=== PATIENT | female | born 1935 | race Caucasian/White ===

== ENCOUNTER 2018-02-11 12:08 | Inpatient (IN) ==
[2018-02-11] MEDS ORDERED: Aspirin 81 MG TAB.CHEW PO STA (13:19)
[2018-02-11 13:51] LABS: Basophils # 0.1 K/mcL (0.0-0.2); Basophils % 0.8 %; Eosinophils # 0.1 K/mcL (0.0-0.6); Eosinophils % 0.6 %; Hematocrit 36.2 % (35.3-44.9); Hemoglobin 11.1 g/dL (11.5-15.4); Immature Granulocytes % 0.2 % (0-4); Lymphocytes # 2.2 K/mcL (0.6-4.6); Lymphocytes % 24.4 %; Mean Corpuscular HGB Conc 30.7 g/dL (31.6-35.5); Mean Corpuscular Hemoglobin 27.2 pg (28.0-33.3); Mean Corpuscular Volume 88.7 fL (83.0-100.0); Mean Platelet Volume 12.2 fL (9.4-12.4); Monocytes # 0.7 K/mcL (0.0-1.3); Monocytes % 7.7 %; Neutrophils # 5.8 K/mcL (1.6-8.9); Platelet Count 221 K/mcL (140-400); Red Blood Count 4.08 M/mcL (3.82-4.97); Red Cell Distribution Width 17.5 % (11.5-14.5); Segmented Neutrophils % 66.3 %
[2018-02-11 14:07] LABS: Troponin I < 0.03 ng/mL (< 0.04)
[2018-02-11 14:08] LABS: BUN/Creatinine Ratio 12 (6-26); Blood Urea Nitrogen 11 mg/dL (8-23); Calcium 9.2 mg/dL (8.6-10.3); Carbon Dioxide 28 mEq/L (23-29); Chloride 102 mEq/L (98-107); Glucose 107 mg/dL (70-105); Magnesium 1.7 mg/dL (1.6-2.6); Osmolality,Calculated 286 (280-300); Potassium 3.7 mEq/L (3.5-5.1); Sodium 138 mEq/L (136-145); eGFR For Non-African Americans 58 (> 60)
[2018-02-11 14:21] LABS: Thyroid Stimulating Hormone 2.003 mcIU/mL (0.340-5.600)
[2018-02-11] MEDS ORDERED: *HR* Heparin 5,000 UNIT/ML VIAL IVP ONE (14:43)
[2018-02-11] MEDS ORDERED: *HR* Heparin 5,000 UNIT/ML VIAL IVP PRN ×2 (14:43)
[2018-02-11] MEDS ORDERED: Naloxone 0.4 MG/ML INJ IVP PRN (15:31)
[2018-02-11 15:46] LABS: INR 1.1; Prothrombin Time 11.9 Seconds (9.4-12.1)
[2018-02-11 15:47] LABS: Heparin anti-factor XA UFH 0.04 IU/mL (0.30-0.70)
[2018-02-11] MEDS ORDERED: traZODone 50 MG TABLET PO PRN (15:53)
--- NOTE | 2018-02-11 16:14 | Electrocardiograph Report ---
[employer] Test Date: 2018-02-11 Pat Name: No Carrasquillo Department: 104 Room: 3B22 Gender: F Notereader: : 1935 Requested By: Floresita See Order Number: [id number] Reading MD: Darion Torres Measurements Intervals [place] Rate: 135 P: AL: 0 QRS: 49 QRSD: 81 T: 40 QT: 317 QTc: 396 Interpretive Statements ATRIAL FIBRILLATION WITH RAPID VENTRICULAR RESPONSE LOW QRS VOLTAGE IN PRECORDIAL LEADS ABNORMAL RHYTHM ECG Electronically Signed On 02-11-2018 16:13:02 EDT by Darion Torres
[2018-02-11] MEDS ORDERED: Furosemide 20 MG/2 ML VIAL IVP ONE (16:40)
[2018-02-11] MEDS ORDERED: Furosemide 20 MG/2 ML VIAL IVP SCH (17:00)
[2018-02-11] MEDS: Heparin 25,000 UNIT/500 ML D5W 25,000 UNIT/500 ML BAG IVC SCH (17:51)
[2018-02-11 18:09] LABS: Hematocrit 36.3 % (35.3-44.9); Hemoglobin 11.1 g/dL (11.5-15.4)
[2018-02-11] MEDS: Acetaminophen 325 MG TABLET PO PRN (18:36)
--- NOTE | 2018-02-11 19:19 | Emergency Department Note ---
Disposition Clinical Impression: New onset atrial fibrillation, Peripheral edema Dyspnea Qualifiers: Dyspnea type: unspecified Qualified Code(s): R06.00 - Dyspnea, unspecified Disposition: Admitted As Inpatient Condition: Good Time of Disposition: 14:46 General Adult HPI - General Chief complaint: ED Shortness of Breath/Dyspnea Stated complaint: New onset Afib/CHF Time Seen by Provider: 02/11/18 12:22 Source: patient Mode of arrival: ambulatory Limitations: no limitations Nursing Notes Reviewed: Yes Vital Signs Reviewed: Yes - History of Present Illness HPI Narrative: Patient is a 82-year-old female that presents emergency department with increased shortness of breath and sense of palpitations and irregular heartbeat. Patient states that this is been ongoing for the past few weeks. Patient states that she has been seen by her primary care provider and was found to have pleural effusions. Patient states that she does not have a history of age fibrillation or any cardiac history. Patient states that she has had stress tests in the past and this was "normal" per patient and family member. Patient states that she has had some epigastric chest discomfort but does not radiate anywhere. Patient reports that she has had increased shortness of breath and when she lays flat her symptoms are worse. She also reports that she has had increased swelling in bilateral lower extremities. Pain Scale: 0 - Related Data Allergies Allergy/AdvReac Type Severity Reaction Status Date / Time ciprofloxacin [From Cipro] Allergy See Verified 02/11/18 12:22 Comments codeine Allergy Nausea Verified 02/11/18 12:22 latex Allergy Blister Verified 02/11/18 12:22 pantoprazole [From Protonix] Allergy Itching Verified 02/11/18 12:22 Sulfa (Sulfonamide Allergy Rash Verified 02/11/18 12:22 Antibiotics) Zolpidem [From Ambien] Allergy Hallucinati Verified 02/11/18 12:22 ng All systems ED: reviewed and negative except as stated. Cardiovascular: Reports: chest pain Respiratory: Reports: dyspnea Past Medical History - Past Medical History Medical history: Reports: GERD, hypertension, seizures Surgical history: Reports: cholecystectomy, hysterectomy Psychiatric history: Reports: no psych history - Social History Smoking Status: Never smoker Alcohol use: Reports: occasionally Drug use: Reports: none Physical Exam - General Limitations: no limitations General appearance: alert, in no apparent distress - Head Head exam: atraumatic, normocephalic - Eye Eye exam: Present: normal appearance, EOMI - Neck Neck exam: Present: normal inspection, full ROM, trachea midline - Respiratory Respiratory exam: Present: normal lung sounds bilaterally. Absent: respiratory distress, wheezes - Cardiovascular Cardiovascular exam: Present: tachycardia, irregular rhythm, normal heart sounds, +S1, +S2 - Abdominal Exam Abdominal exam: Present: soft, Non-Tender, normal bowel sounds - Extremities Exam Extremities exam: Present: other (2+ edema bilateral lower extremity is) - Neurological Exam Neurological exam: Present: alert, oriented X3 - Psychiatric Psychiatric exam: Present: normal affect, normal mood - Skin Skin exam: Present: warm, dry, intact Course Vital Signs Temperature 98.0 F 02/11/18 12:22 Pulse Rate 135 02/11/18 12:22 Respiratory Rate 20 02/11/18 12:22 Blood Pressure 115/71 02/11/18 12:22 O2 Sat by Pulse Oximetry 98 02/11/18 12:22 Temperature 98.0 F 02/11/18 12:22 Pulse Rate 125 02/11/18 14:28 Respiratory Rate 18 02/11/18 14:28 Blood Pressure 150/111 02/11/18 14:28 O2 Sat by Pulse Oximetry 97 02/11/18 14:30 Oxygen Delivery Oxygen Delivery Room Air Medical Decision Making - MDM Narrative Medical decision making narrative: Due to the patient stating to the emergency department with new onset atrial fibrillation and shortness of breath we will obtain a cardiac workup including CBC, BMP, troponin chest x-ray EKG. We will also try the patient with IV Lasix due to having increased fluid retention. We will also give the patient diltiazem for rate control of her new onset atrial fibrillation. Patient's EKG showed atrial fibrillation with rapid ventricular response. The chest x-ray showed a small left pleural effusion otherwise was unremarkable. Patient's troponin was negative. Patient does have a mild anemia of 11.1. Due to the patient having new onset atrial fibrillation she will need rate control, anticoagulation and to be admitted to the hospital for further evaluation and management workup of her atrial fibrillation. Patient was discussed with the admitting hospitalist Dr. caldwell and she is accepted the patient to their service. Patient be admitted to the hospital this time for further evaluation and management. The admitting hospitalist and asked that a consult to cardiology be placed in the computer. This is been done. We will also start the patient on standard dose heparin for anticoagulation with her new onset atrial fibrillation. - Medical Records Medical records reviewed: Yes I reviewed the patient's medical records. - Lab Data Lab results reviewed: Yes I reviewed the patient's lab results. Result diagrams: 02/11/18 12:22 02/11/18 12:22 Lab Results 02/11/18 02/11/18 Range/Units 12:22 12:22 WBC 8.8 (4.3-11.1) K/mcL RBC 4.08 (3.82-4.97) M/mcL Hgb 11.1 L (11.5-15.4) g/dL Hct 36.2 (35.3-44.9) % MCV 88.7 (83.0-100.0) fL MCH 27.2 L (28.0-33.3) pg MCHC 30.7 L (31.6-35.5) g/dL RDW 17.5 H (11.5-14.5) % Plt Count 221 (140-400) K/mcL MPV 12.2 (9.4-12.4) fL Immature Gran % 0.2 (0-4) % Seg Neutrophils % 66.3 % Lymphocytes % 24.4 % Monocytes % 7.7 % Eosinophils % 0.6 % Basophils % 0.8 % Neutrophils # 5.8 (1.6-8.9) K/mcL Lymphocytes # 2.2 (0.6-4.6) K/mcL Monocytes # 0.7 (0.0-1.3) K/mcL Eosinophils # 0.1 (0.0-0.6) K/mcL Basophils # 0.1 (0.0-0.2) K/mcL Sodium 138 (136-145) mEq/L Potassium 3.7 (3.5-5.1) mEq/L Chloride 102 (98-107) mEq/L Carbon Dioxide 28 (23-29) mEq/L BUN 11 (8-23) mg/dL Creatinine 0.93 (0.60-1.20) mg/dL Est GFR ( Amer) > 60 (> 60) Est GFR (Non-Af Amer) 58 L (> 60) BUN/Creatinine Ratio 12 (6-26) Glucose 107 H (70-105) mg/dL Calculated Osmolality 286 (280-300) Calcium 9.2 (8.6-10.3) mg/dL Magnesium 1.7 (1.6-2.6) mg/dL Troponin I < 0.03 (< 0.04) ng/mL TSH 2.003 (0.340-5.600) mcIU/mL - Radiology Data Radiology results reviewed: Yes I reviewed the patient's radiology results. Chest X-Ray 02/11/18 12:22 IMPRESSION: Small left pleural effusion and minimal atelectasis. Otherwise no acute cardiopulmonary process is seen. D/ / Sandeep Marie MD / Sandeep Marie MD Interpreting Provider: Sandeep Marie MD - EKG Data EKG #1 EKG attestation: Yes I reviewed and interpreted this EKG. EKG results narrative: EKG shows atrial fibrillation with rapid ventricular response at a rate of 135 bpm, QRS duration 81, QTC of 396. No evidence of STEMI and EKG. Attestation Statement - Attestation Attestation: I examined this patient and my medical decision-making was reviewed with the [facility] Physician, Dr. Brownlee. I agree with the documented findings, disposition and treatment plan as described except to the extent set forth below. Patient is an 82-year-old white female who presents seem or permit today with complaints of palpitations and chest discomfort area and she is been experiencing these intermittent palpitations the past few weeks but states that the symptoms worsened over the last few days associated with shortness of breath and left-sided chest pressure. Patient denies any prior cardiac history or evaluation. Patient denies any fevers or chills, no cough or hemoptysis, no diaphoresis. Patient denies any abdominal pain or flank pain no nausea vomiting no other associated symptoms. I agree with patient's physical exam findings as documented. Vital signs are stable with the exception of tachycardia. Patient EKG shows ECG atrial fibrillation with RVR. No acute ischemia is appreciated with this. Patient received aspirin and Cardizem which achieved good rate control and patient remains hemodynamically stable. Chest x-ray shows a small trace pleural effusion otherwise unremarkable. Patient's labs including troponin are within normal limits. Patient will be admitted to the hospitalist service for further evaluation and management. Case was discussed with Dr. terence gamez who accepted the patient for admission.
--- NOTE | 2018-02-11 19:34 | Internal Med History&Physical ---
<AgustinHi - Last Filed: 02/11/18 17:15> Date of Encounter: 02/11/18 Time of Encounter: 14:55 Internal Medicine - H&P: HPI Chief complaint: SOB/Dyspnea/Heart palpitations Admitted From: Emergency Dept Plans for Post Hospital Care: Home History of present illness: Ms. Carrasquillo is a 82 year old female w/PMH of GERD, seizures, hx of HTN (currently does not take BP medication), hx of having 10" of colon removed (d/t adhesions, abscess, and diverticulosis), hx of bladder & bowel stimulator implant, and depression presents from the ED w/CC of SOB, dyspnea, and heart palpitations for the past 3 weeks. Pt. states that her PCP told her previously that she had pleural effusions. Pt. states she had right-sided flank pain and was dxd w/kidney infection recently and completed 10 days of abx. F/u CT of the abdomen/pelvis on 02/08/18 showed no evidence of renal or ureter calculus, bilateral perinephric fat sranding that could suggest chronic renal disease w/appropriate clinical hx, and moderate left pleural effusion. Reports orthopnea, continued pain in RUQ, and bilateral pedal edema. Denies cardiac hx, CHF dx, hx of Afib, or home O2 use. Pt. denies recent illness, fever, chills, nausea, vomiting, headache, changes in vision, unusual bleeding, chest pain, diarrhea, constipation, dizziness, lightheadedness, numbness, tingling, pre- syncope, or syncope. Past Med Surg Social Fam HX - Past Medical History Source: patient, old records reviewed, obtained from family Medical history: GERD, hypertension, seizures Additional medical history: tremors. last seizure- 3 years Psychiatric history: depression - Past Surgical History Surgical History: cholecystectomy, hysterectomy (Total) Additional surgical history: bladder sx x9 , colon 12in removed - Social History Smoking Status: Never smoker Alcohol use: occasionally Drug use: none Current living situation: Home, With Family Activity Level: Independent ambulation Recent Out of Country Travel Within the Last 8 Weeks: No Exposure or Possible Exposure to Illness During Travel: No - Family History Brother Race: Family Member Ethnicity: Non- Living Status: Age at : 87 Cause of : CHF Hx Family Cardiac Disorders: Yes (CHF) Father Race: Family Member Ethnicity: Non- Living Status: Age at : 63 Cause of : Prostate cancer Hx Family Respiratory Disorders: Yes (Asthma) Hx Family Cancer: Yes (Prostate) Mother Race: Family Member Ethnicity: Non- Living Status: Age at : 100 Cause of : Colon cancer Hx Family Cardiac Disorders: Yes (Pacemaker, HTN) Hx Family Cancer: Yes (Colon) Sister Race: Family Member Ethnicity: Non- Living Status: Age at : 69 Cause of : Breast cancer Hx Family Cancer: Yes (Breast, Multiple myeloma) Internal Medicine - H&P: Meds Carbidopa/Levodopa [Carbidopa-Levodopa 25-100 Tab] 1 tab PO TID 02/11/18 [History] Citalopram Hydrobromide [Citalopram HBr] 20 mg PO DAILY 02/11/18 [History] Estrogens, Conjugated [Premarin] 1.25 mg PO DAILY 02/11/18 [History] RX: Omeprazole [PriLOSEC] 40 mg PO DAILY 02/11/18 [History] RX: traZODone [TraZODone] 50 mg PO HS PRN 02/11/18 [History] Allergy/AdvReac Type Severity Reaction Status Date / Time ciprofloxacin [From Cipro] Allergy See Verified 02/11/18 12:22 Comments codeine Allergy Nausea Verified 02/11/18 12:22 latex Allergy Blister Verified 02/11/18 12:22 pantoprazole [From Protonix] Allergy Itching Verified 02/11/18 12:22 Sulfa (Sulfonamide Allergy Rash Verified 02/11/18 12:22 Antibiotics) Zolpidem [From Ambien] Allergy Hallucinati Verified 02/11/18 12:22 ng tramadol AdvReac Dizziness Verified 02/11/18 20:37 All Systems PM: A 10-system review of systems was performed and is negative for pertinent findings except as documented above in the HPI. - Constitutional Constitutional: no chills, no fever(s), no night sweats - EENT Eyes: no change in vision, no discharge, no pain, no photophobia Ears: no ear discharge, no ear pain, no tinnitus Nose, mouth and throat: no dysphagia, no nasal discharge, no neck pain, no sore throat - Breasts Breasts: as per HPI - Cardiovascular Cardiovascular ROS IM: as per HPI, dyspnea, dyspnea on exertion, edema (Bilateral pedal edema), irregular heart rhythm, orthopnea, no chest pain, no diaphoresis, no lightheadedness, no palpitations, no syncope - Respiratory Respiratory: as per HPI, dyspnea, dyspnea on exertion, no cough, no wheezing, no excessive phlegm production - Gastrointestinal Gastrointestinal: as per HPI, abdominal pain (RUQ), no diarrhea, no hematemesis, no hematochezia, no melena, no nausea, no vomiting - Genitourinary Genitourinary: as per HPI, flank pain (Right), no change in urinary stream, no dysuria, no hematuria Menstruation: as per HPI, post hysterectomy (Total) - Musculoskeletal Musculoskeletal ROS IM: no numbness, no tingling - Integumentary Integumentary IM: no rash, no unusual bruising - Neurological Neurological ROS: as per HPI, no confusion, no convulsions, no focal weakness, no numbness, no tingling, no tremor(s) - Psychiatric Psychiatric: as per HPI, depression - Endocrine Endocrine IM: as per HPI - Hematologic/Lymphatic Hematologic/Lymphatic: no easy bruising - Allergic/Immunologic Allergic/Immunologic: as per HPI - Constitutional Vitals: Temp Pulse Resp BP Pulse Ox 98.0 F 115 16 150/116 99 02/11/18 12:22 02/11/18 15:10 02/11/18 15:10 02/11/18 15:10 02/11/18 15:10 General appearance: Present: cooperative, mild distress (SOB/dyspnea), A&O X 3, pleasant, answers questions appropriately Exam: Patient examined at bedside in ED w/complaint of ongoing SOB and dyspnea. Pt. states that she is also having heart palpitations. Denies nausea, CP or any other sx at this time. VS: 96.2F temp, HR 114, RR 18, BP 138/90, SpO2 of 99% on RA. - Head Head exam: Present: atraumatic, normocephalic - Eye Eye exam: Present: PERRL, conjuntiva pink, sclera anicteric Pupils: Present: PERRL - ENT ENT exam: Present: normal exam - Neck Neck exam general surgery: Present: normal inspection, supple, trachea midline. Absent: lymphadenopathy - Respiratory Respiratory exam: Present: CTAB. Absent: accessory muscle use, rales, rhonchi, wheezes - Cardiovascular Cardiovascular exam: Present: irregular rhythm. Absent: diastolic murmur, gallop, rubs, systolic murmur - GI/Abdominal GI/Abdominal exam: Present: normal bowel sounds, soft, no peritoneal signs. Absent: distended, tenderness - Rectal Rectal exam: Present: deferred - Additional comments: exam deferred. - Extremities Exam Extremities exam: Present: pedal edema (1+ pitting bilaterally), warm, radial pulses palpable and symmetrical. Absent: calf tenderness, cyanotic - Back Exam Back exam: Present: normal inspection - Neurological Exam Neurological exam: Present: alert, CN II-XII intact, oriented X3, no focal deficits. Absent: pronater drift, facial droop, speech deficit - Psychiatric Psychiatric exam: Present: normal affect, normal mood - Skin Skin exam: Present: dry, intact Internal Med - H&P Results - Labs CBC & Chem 7: 02/11/18 12:22 02/11/18 12:22 Labs: Short CBC 02/11/18 Range/Units 12:22 WBC 8.8 (4.3-11.1) K/mcL Hgb 11.1 L (11.5-15.4) g/dL Hct 36.2 (35.3-44.9) % Plt Count 221 (140-400) K/mcL Neutrophils # 5.8 (1.6-8.9) K/mcL BMP 02/11/18 12:22 Sodium 138 Potassium 3.7 Chloride 102 Carbon Dioxide 28 BUN 11 Creatinine 0.93 Glucose 107 H Calcium 9.2 Cardiac Enzymes 02/11/18 Range/Units 12:22 Troponin I < 0.03 (< 0.04) ng/mL - Impressions ITS Impressions Chest X-Ray 02/11/18 12:22 IMPRESSION: Small left pleural effusion and minimal atelectasis. Otherwise no acute cardiopulmonary process is seen. D/ / Sandepe Marie MD / Sandeep Marie MD Interpreting Provider: Sandeep Marie MD - Diagnostic Studies CT scan - abdomen Additional comments: ORDER PHYSICIAN: Hays Ricobruno BIRAD: DATE OF SERVICE: 02/08/18 FOLLOW UP: ACCESSION NUMBERS(S): [id number] PROCEDURE(S): CT abd pelvis wo no iv no oral REASON FOR EXAM: R10.31 cc: Saúl Ballard; Nael EXAMINATION: CT OF THE ABDOMEN AND PELVIS WITHOUT CONTRAST 02/08/2018 12:46 pm TECHNIQUE: CT of the abdomen and pelvis was performed without the administration of intravenous contrast. Multiplanar reformatted images are provided for review. Dose modulation, iterative reconstruction, and/or weight based adjustment of the mA/kV was utilized to reduce the radiation dose to as low as reasonably achievable. COMPARISON: None. HISTORY: ORDERING SYSTEM PROVIDED HISTORY: R10.31 FINDINGS: No evidence of renal or ureter calculus. There is no hydronephrosis. There is mild bilateral perinephric fat stranding. No evidence of bowel obstruction, free air, or evidence of free fluid. Postsurgical changes are seen in the pelvis related to prior bowel resection. The appendix is visualized and unremarkable. There is no intrahepatic or extrahepatic bile duct dilatation. Evidence of cholecystectomy. No evidence of acute pancreatitis. Spleen is nonenlarged. There is moderate-sized pleural effusion visualized left lung base. CT/CT abd pelvis wo no iv no oral IMPRESSION: 1. No evidence of renal or ureter calculus. 2. Bilateral perinephric fat stranding could suggest chronic medical renal disease with appropriate clinical history. 3. Moderate size left pleural effusion. D/ / Govind Kelly / Govind Kelly Interpreting Provider: Govind Kelly Chest x-ray Additional comments: Impressions Chest X-Ray 02/11/18 12:22 IMPRESSION: Small left pleural effusion and minimal atelectasis. Otherwise no acute cardiopulmonary process is seen. D/ / Sandeep Marie MD / Sandeep Marie MD Interpreting Provider: Sandeep Marie MD - Assessment and plan (1) New onset atrial fibrillation Current Visit: Yes Status: Acute Assessment and plan: Acute and new onset of atrial fibrillation. Pt. denies cardiac hx, hx of Afib, or CHF. CXR today shows small left pleural effusion and minimal atelectasis. Otherwise no acute cardiopulmonary process is seen. Echocardiogram ordered. Continuous cardiac telemetry. Supplemental O2 w/titration and SpO2 monitoring for SOB/orthopnea. Pt. placed on Cardizem gtt in ED as well as heparin gtt. Cardiology consult placed in ED and I appreciate the consult and recommendations as always. Pt. discussed w/Dr. Gayle who agrees w/plan of care. Pt. is high risk for further morbidity and complications based on new onset of Afib, suspected CHF (awaiting results of Echocardiogram), SOB/dyspnea, Cardizem and heparin gtts requiring close monitoring and titration, hx, and risk factors. Inpatient. (2) Peripheral edema Current Visit: Yes Status: Acute Assessment and plan: Acute and new bilateral pedal edema of LEs. 1+ pitting. Pt. denies use of lasix or hx/dx of CHF. 20 mg IVP lasix ONCE. Will add BID dosing once Echocardiogram is completed if results warrant. 1/5L fluid restriction. BNP ordered. Monitor I&O and daily weight. (3) Dyspnea Current Visit: Yes Status: Acute Assessment and plan: Pt. reports SOB/dypsnea for the past three weeks that has been worsening, orthopnea, increased weight gain, and bilateral pedal edema. Denies home O2 use. Supplemental O2 w/titration and SpO2 monitoring. 20 mg IVP ONCE of lasix and monitor I&O. 1.5L daily fluid restriction. Qualifiers: Dyspnea type: orthopnea Qualified Code(s): R06.01 - Orthopnea (4) GERD (gastroesophageal reflux disease) Current Visit: Yes Status: Chronic Assessment and plan: Hx of chronic GERD. Continue pts. Prilosec. IVP Zofran PRN for N/V. Qualifiers: Esophagitis presence: esophagitis presence not specified Qualified Code(s): K21.9 - Gastro-esophageal reflux disease without esophagitis (5) History of seizures Current Visit: Yes Status: Chronic Assessment and plan: Hx of seizures. Last reported seizure was two years ago. Continue pts. Carbidopa levodopa. (6) CKD (chronic kidney disease) stage 3, GFR 30-59 ml/min Current Visit: Yes Status: Chronic Assessment and plan: Hx of CKD. Currently stage 3 w/GFR of 58 and creatinine of 0.93. Will use IV fluids judiciously if warranted d/t CKD hx and current suspected CHF component. Avoid nephrotoxins. Monitor I&O, daily weight, and f/u labs. 1.5L daily fluid restriction d/t current pedal edema and orthopnea. (7) DVT prophylaxis Current Visit: Yes Status: Acute Assessment and plan: Pt. placed on heparin drip d/t new onset of Atrial fibrillation. Monitor pt. for signs of bleeding. - Time Spent With Patient Total time spent is greater than 50% in coordination of care (as documented) at patient's floor/unit and/or counseling patient: Greater than 35 minutes <Kelsi Gayle - Last Filed: 02/14/18 07:56> Internal Medicine - H&P: HPI History of present illness: Ms. Carrasquillo is a 82 year old female All Systems PM: A 10-system review of systems was performed and is negative for pertinent findings except as documented above in the HPI. - Constitutional Vitals: Temp Pulse Resp BP Pulse Ox 97.8 F 96 16 128/82 97 02/14/18 07:06 02/14/18 07:06 02/14/18 07:06 02/14/18 07:06 02/14/18 07:06 Internal Med - H&P Results - Labs CBC & Chem 7: 02/14/18 02:42 02/14/18 02:42 Labs: Short CBC 02/14/18 Range/Units 02:42 WBC 6.4 (4.3-11.1) K/mcL Hgb 9.4 L (11.5-15.4) g/dL Hct 31.1 L (35.3-44.9) % Plt Count 170 (140-400) K/mcL Neutrophils # 3.8 (1.6-8.9) K/mcL BMP 02/14/18 02:42 Sodium 138 Potassium 3.5 Chloride 104 Carbon Dioxide 28 BUN 9 Creatinine 0.87 Glucose 92 Calcium 8.5 L Liver Function 02/14/18 Range/Units 02:42 Total Bilirubin 0.5 (0.3-1.0) mg/dL AST 11 L (13-39) Units/L ALT < 3 L (7-52) Units/L Alkaline Phosphatase 46 (34-104) Units/L Albumin 2.9 L (3.5-5.7) g/dL Urine 02/13/18 Range/Units 10:14 Urine Color Yellow (Yellow) Urine Clarity Cloudy A (Clear) Urine pH 6.5 (5.0-8.0) pH Units Ur Specific [place] 1.006 L (1.010-1.025) Urine Protein Negative (Neg-Trace) mg/dL Urine Glucose (UA) Normal (Normal) mg/dL - Impressions ITS Impressions Chest X-Ray 02/11/18 12:22 IMPRESSION: Small left pleural effusion and minimal atelectasis. Otherwise no acute cardiopulmonary process is seen. D/ / Sandeep Marie MD / Sandeep Marie MD Interpreting Provider: Sandeep Marie MD Echocardiogram 02/12/18 15:45 Impressions: Technically adequate exam. LVEF 60-65%. Indeterminate diastolic function. Mild concentric left ventricular hypertrophy. Normal right ventricular structure and function. Moderately to severe biatrial enlargement. Mild-moderate mitral regurgitation. Moderate-severe tricuspid regurgitation. - Assessment and plan (1) New onset atrial fibrillation Current Visit: Yes Status: Acute (2) Peripheral edema Current Visit: Yes Status: Acute (3) Dyspnea Current Visit: Yes Status: Acute Qualifiers: Dyspnea type: orthopnea Qualified Code(s): R06.01 - Orthopnea (4) GERD (gastroesophageal reflux disease) Current Visit: Yes Status: Chronic Qualifiers: Esophagitis presence: esophagitis presence not specified Qualified Code(s): K21.9 - Gastro-esophageal reflux disease without esophagitis (5) DVT prophylaxis Current Visit: Yes Status: Acute (6) History of seizures Current Visit: Yes Status: Chronic (7) CKD (chronic kidney disease) stage 3, GFR 30-59 ml/min Current Visit: Yes Status: Chronic (8) Alcohol abuse Current Visit: Yes Status: Acute (9) CHF (congestive heart failure) Current Visit: Yes Status: Acute Qualifiers: Heart failure type: unspecified Heart failure chronicity: acute Qualified Code(s): I50.9 - Heart failure, unspecified - Time Spent With Patient Total time spent is greater than 50% in coordination of care (as documented) at patient's floor/unit and/or counseling patient: - Attending Attestation I personally and independently interviewed and examined the patient , and I reviewed the patient's medical record . I am in agreement with proposed assessment and proposed treatment plan. I discussed my findings and recommendation with the patient and answer his questions. The patient's medical records were edited to accurately reflect this encounter.
[2018-02-11] MEDS ORDERED: *HR* HYDROcodone/Acet 7.5/325 mg TABLET PO ONE (20:56)
[2018-02-11] MEDS ORDERED: *HR* Promethazine 25 MG/ML VIAL IVP ONE (21:04)
[2018-02-11] MEDS: Carbidopa/Levodopa 25/100 TABLET PO SCH (21:27)
[2018-02-12 00:35] LABS: Basophils # 0.1 K/mcL (0.0-0.2); Eosinophils # 0.1 K/mcL (0.0-0.6); Eosinophils % 1.4 %; Hemoglobin 10.5 g/dL (11.5-15.4); Immature Granulocytes % 0.1 % (0-4); Lymphocytes # 2.6 K/mcL (0.6-4.6); Lymphocytes % 36.5 %; Mean Corpuscular HGB Conc 30.9 g/dL (31.6-35.5); Mean Corpuscular Hemoglobin 26.9 pg (28.0-33.3); Mean Platelet Volume 12.3 fL (9.4-12.4); Monocytes # 0.8 K/mcL (0.0-1.3); Monocytes % 10.9 %; Neutrophils # 3.5 K/mcL (1.6-8.9); Platelet Count 197 K/mcL (140-400); Red Blood Count 3.91 M/mcL (3.82-4.97); Red Cell Distribution Width 17.5 % (11.5-14.5); Segmented Neutrophils % 50.1 %
[2018-02-12 00:50] LABS: Albumin 3.3 g/dL (3.5-5.7); Albumin/Globulin Ratio 1.2 (1.1-2.2); Bilirubin,Total 0.4 mg/dL (0.3-1.0); Chol/HDL Ratio 2.3 (0-4.9); Globulin 2.8 g/dL (2.4-3.5); Potassium 3.7 mEq/L (3.5-5.1); Total Protein 6.1 g/dL (6.4-8.9)
[2018-02-12 07:14] LABS: Estimated Average Glucose 131 mg/dl; Hemoglobin A1C 6.2 %
[2018-02-12] MEDS: Carbidopa/Levodopa 25/100 TABLET PO SCH ×3 (07:55→21:00)
--- NOTE | 2018-02-12 09:31 | Cardiology Consult Note ---
Addendum entered and electronically signed by Guillermo Olea MD 02/12/18 14:38: I examined this patient and my medical decision-making was reviewed with the LENS COATING TECHNICIAN. I agree with the documented findings, disposition and treatment plan as described except to the extent set forth below. A/P: New onset atrial fibrillation Alcohol use, per pt and family, 2/2 severe chronic back pain that has been suboptimally treated. States toradol helped in the past - will give IV 20mg x 1 dose. Acute CHF, NOS. Dyspnea upon sitting up in bed, bibasilar crackles on exam. Lasix 20mg IV daily - continue to monitor bmp closely, may need to accept mild renal impairment to improve symptoms. Imdur 30mg daily to reduce preload and awaiting TTE results. Thank you for the consult, Guillremo Olea MD [facility] Original Note: Date of Encounter: 02/12/18 Time of Encounter: 09:30 Assessment and Plan (1) New onset atrial fibrillation Current Visit: Yes Status: Acute Per Cardiology: Currently A. fib in the 70s to 80s. Currently on IV Cardizem drip at 2.5 mg per hour -- will attempt to wean IV Cardizem drip and start Cardizem 30 mg by mouth every 6 hours area and current systolic blood pressure in the low 100s. Echo pending. TSH, magnesium, troponin stable. Regarding long-term anticoagulation, currently on IV heparin drip. We will need to evaluate long-term anticoagulation, concerns for unsteady gait with history of falls, alcohol abuse. (2) Dyspnea Current Visit: Yes Status: Acute Per Cardiology: Chest x-ray shows small left pleural effusion. BNP noted to be 345. On IV Lasix 20 mg twice a day. Net - ~500ml. Echo pending. Qualifiers: Dyspnea type: orthopnea Qualified Code(s): R06.01 - Orthopnea Discussion w patient/family: The assessment and plan as outlined above was discussed with the patient and/or family members who expressed understanding and agreement. All questions were answered. Thank you for involving us in the care of your patient. Please call with any questions. History of Present Illness Consult date: 02/12/18 Requesting physician: Hi Velez Consult reason: Afib Chief complaint: SOB History of present illness: Previous records reviewed, "Ms. Carrasquillo is a 82 year old female w/PMH of GERD, seizures, hx of HTN (currently does not take BP medication), hx of having 10" of colon removed (d/t adhesions, abscess, and diverticulosis), hx of bladder & bowel stimulator implan t, and depression presents from the ED w/CC of SOB, dyspnea, and heart palpitations for the past 3 weeks. Pt. states that her PCP told her previously that she had pleural effusions. Pt. states she had right-sided flank pain and was dxd w/kidney infection recently and completed 10 days of abx". ____ __ Cardiology consult for new onset A. fib with RVR. Patient seen with family at bedside and confirm above findings. She reports progressive shortness of breath at rest and dyspnea on exertion over the past 3- 4 weeks with increased bilateral lower swelling and edema. The report weight gain of about 15 pounds during the same time period. She reports chronic history of dizziness with position changes, however worsening over the past few weeks. She reports history of anemia, however denies any current active bleeding or blood loss. Reports history of nonessential tremors. Reports unsteady gait and history of falls. Now lives at home with daughter reports last fall about one year ago. She does report she drinks about one alcoholic beverage every evening, however family member in the hallway pointed out she drinks about 5-6 drinks per night. She denies any past history of atrial fi brillation. Denies any awareness to any CAD history. Denies any smoking in the past. Past Med Surg Social Fam HX - Past Medical History Attestation: Yes The following information was validated with the patient. Source: patient, old records reviewed, obtained from family Medical history: GERD, hypertension, seizures Additional medical history: tremors. last seizure- 3 years Psychiatric history: depression - Past Surgical History Surgical History: cholecystectomy, hysterectomy (Total) Additional surgical history: bladder sx x9 , colon 12in removed - Social History Smoking Status: Never smoker Smokeless Tobacco Status: No Alcohol use: occasionally Drug use: none - Family History Brother Race: Family Member Ethnicity: Non- Living Status: Age at : 87 Cause of : CHF Hx Family Cardiac Disorders: Yes (CHF) Sister Race: Family Member Ethnicity: Non- Living Status: Age at : 69 Cause of : Breast cancer Hx Family Cancer: Yes (Breast, Multiple myeloma) Mother Race: Family Member Ethnicity: Non- Living Status: Age at : 100 Cause of : Colon cancer Hx Family Cardiac Disorders: Yes (Pacemaker, HTN) Hx Family Cancer: Yes (Colon) Father Race: Family Member Ethnicity: Non- Living Status: Age at : 63 Cause of : Prostate cancer Hx Family Respiratory Disorders: Yes (Asthma) Hx Family Cancer: Yes (Prostate) Medications and Allergies Carbidopa/Levodopa [Carbidopa-Levodopa 25-100 Tab] 1 tab PO TID 02/11/18 [History] Citalopram Hydrobromide [Citalopram HBr] 20 mg PO DAILY 02/11/18 [History] Estrogens, Conjugated [Premarin] 1.25 mg PO DAILY 02/11/18 [History] Omeprazole [PriLOSEC] 40 mg PO DAILY 02/11/18 [History] traZODone [TraZODone] 50 mg PO HS PRN 02/11/18 [History] Allergy/AdvReac Type Severity Reaction Status Date / Time ciprofloxacin [From Cipro] Allergy See Verified 02/11/18 12:22 Comments codeine Allergy Nausea Verified 02/11/18 12:22 latex Allergy Blister Verified 02/11/18 12:22 pantoprazole [From Protonix] Allergy Itching Verified 02/11/18 12:22 Sulfa (Sulfonamide Allergy Rash Verified 02/11/18 12:22 Antibiotics) Zolpidem [From Ambien] Allergy Hallucinati Verified 02/11/18 12:22 ng tramadol AdvReac Dizziness Verified 02/11/18 20:37 All Systems Review: The remainder of the systems were reviewed and are negative - Constitutional Constitutional: fatigue, weight gain - Cardiovascular Cardiovascular: as per HPI, chest pain at rest, chest pain with exertion, dyspnea at rest, dyspnea on exertion, irregular heart rhythm, leg edema, lightheadedness, palpitations Physical Examination Vital Signs, Last 4 Hours Temp Pulse Resp BP Pulse Ox 02/12/18 08:10 97.8 F 70 16 107/65 95 02/12/18 07:50 97.8 F 76 16 98/57 97 General: Conversant, No Apparent Distress HEENT: Atraumatic, Normocephaly, Mucus Membranes Moist Neck: No JVD, Normal carotid pulses Cardiac: Normal S1 and S2, No Murmur, Other (Irregularly irregular) Lungs: Normal Breath Sounds, No Wheeze, Rales, Rhonchi Neuro: Alert and responsive, No focal deficits noted Abdomen: Soft, Non-Tender Skin: No rashes noted on visualized skin Musculoskeletal: No Chest Wall Tenderness Extremities: No Clubbing, No Cyanosis, Normal Pulses, Other (+2 bilateral lower extremity edema) Results 02/12/18 00:13 02/12/18 00:13 Lab Results Laboratory Tests 02/11/18 02/11/18 02/11/18 12:22 14:44 16:09 Hgb Hct INR 1.1 Creatinine Est GFR (Non-Af Amer) Hemoglobin A1c Magnesium 1.7 AST ALT Troponin I < 0.03 B-Natriuretic Peptide 345 H LDL Cholesterol, Calc TSH 2.003 02/12/18 02/12/18 02/12/18 00:13 00:13 00:13 Hgb 10.5 L Hct 34.0 L INR Creatinine 1.18 Est GFR (Non-Af Amer) 44 L Hemoglobin A1c 6.2 H Magnesium AST 13 ALT 3 L Troponin I B-Natriuretic Peptide LDL Cholesterol, Calc 73 TSH ITS Impressions Chest X-Ray 02/11/18 12:22 IMPRESSION: Small left pleural effusion and minimal atelectasis. Otherwise no acute cardiopulmonary process is seen. D/ / Sandeep Marie MD / Sandeep Marie MD Interpreting Provider: Sandeep Marie MD Active Medications Acetaminophen (Tylenol) 650 mg PO Q6HR PRN PRN Reason: Mild Pain/Fever Stop: 08/13/18 15:32 Last Admin: 02/11/18 18:36 Dose: 650 mg Carbidopa/Levodopa (Sinemet) 1 each PO TID [facility] Stop: 08/13/18 21:01 Last Admin: 02/12/18 07:55 Dose: 1 each Citalopram Hydrobromide (Celexa) 20 mg PO DAILY [facility] Stop: 08/14/18 09:01 Last Admin: 02/12/18 07:55 Dose: 20 mg Estrogens Conjugated (Premarin) 1.25 mg PO DAILY [facility] Stop: 08/14/18 09:01 Last Admin: 02/12/18 07:55 Dose: 1.25 mg Furosemide (Lasix) 20 mg IVP BIDDIURETIC [facility] Stop: 08/13/18 17:01 Heparin Sodium (Porcine) (Heparin) 4,800 unit 70 unit/kg (4800 unit) IVP Q6HR PRN PRN Reason: SEE COMMENTS Stop: 08/13/18 14:44 Heparin Sodium (Porcine) (Heparin) 2,400 unit 35 unit/kg (2400 unit) IVP Q6H PRN PRN Reason: SEE COMMENTS Stop: 08/13/18 14:44 Diltiazem HCl 50 mg/ Sodium (Chloride) 50 mls @ 5 mls/hr IVC .Q10H [facility]; Protocol Stop: 08/13/18 13:46 Last Infusion: 02/12/18 08:55 Dose: 2.5 mg/hr, 2.5 mls/hr Heparin Sodium/Dextrose (Heparin 25,000 Unit/500 Ml D5w) 25,000 unit in 500 mls @ 19.178 mls/hr IVC .Q24H [facility]; Protocol Stop: 08/13/18 14:46 Last Titration: 02/12/18 02:17 Dose: 13.94 unit/kg/hr, 19.1 mls/hr Naloxone HCl (Narcan) 0.4 mg IVP Q2MIN PRN PRN Reason: SEE COMMENTS Stop: 08/13/18 15:32 Omeprazole (Prilosec) 40 mg PO DAILY@0730 [facility] Stop: 08/14/18 07:31 Last Admin: 02/12/18 06:23 Dose: 40 mg Trazodone HCl (Trazodone) 50 mg PO HS PRN PRN Reason: Insomnia Stop: 08/13/18 15:54 - Imaging and Cardiology Echo: pending - EKG Interpretation EKG results cardiology: personally reviewed (Atrial fibrillation in the 130s) Consult Discharge Plan - Plan Referrals: Saúl Ballard MD [Primary Care Provider] -
[2018-02-12] MEDS: Acetaminophen 325 MG TABLET PO PRN ×2 (11:45→23:06)
[2018-02-12] MEDS ORDERED: Ketorolac 15 MG/ML VIAL IVP ONE (14:36)
[2018-02-12] MEDS ORDERED: *HR* LORazepam 2 MG/ML VIAL IVP PRN ×3 (15:28)
[2018-02-12] MEDS ORDERED: *HR* Promethazine 25 MG/ML VIAL IVP PRN (15:28)
--- NOTE | 2018-02-12 15:36 | Internal Med Progress Note ---
Hospitalist Progress Note - Encounter Date of Encounter: 02/12/18 Time of Encounter: 10:00 - Subjective Interval History: Patient was seen and examined at bedside. Currently denies any palpitations chest pain or shortness of breath. She does have some chronic back pain. - Exam Vitals: Temp Pulse Resp BP Pulse Ox 98.1 F 88 14 124/70 97 02/12/18 12:16 02/12/18 13:00 02/12/18 13:00 02/12/18 13:00 02/12/18 13:00 Exam: General: Conversant, No Apparent Distress HEENT: Atraumatic, Normocephaly, Mucus Membranes Moist Neck: No JVD, Normal carotid pulses Cardiac: Normal S1 and S2, No Murmur, Other (Irregularly irregular) Lungs: Normal Breath Sounds, No Wheeze, Rales, Rhonchi Neuro: Alert and responsive, No focal deficits noted Abdomen: Soft, Non-Tender Skin: No rashes noted on visualized skin Musculoskeletal: No Chest Wall Tenderness Extremities: No Clubbing, No Cyanosis, Normal Pulses, Other (+2 bilateral lower extremity edema) - Assessment and Plan (1) New onset atrial fibrillation Current Visit: Yes Status: Acute Assessment and Plan: Acute and new onset of atrial fibrillation. Pt. denies cardiac hx, hx of Afib, or CHF. CXR today shows small left pleural effusion and minimal atelectasis. Otherwise no acute cardiopulmonary process is seen. Echocardiogram ordered. Continuous cardiac telemetry. Supplemental O2 w/titration and SpO2 monitoring for SOB/orthopnea. Pt. placed on Cardizem gtt in ED as well as heparin gtt. Cardiology consult placed in ED and I appreciate the consult and recommendations as always. Pt. discussed w/Dr. Gayle who agrees w/plan of care. Pt. is high risk for further morbidity and complications based on new onset of Afib, suspected CHF (awaiting results of Echocardiogram), SOB/dyspnea, Cardizem and heparin gtts requiring close monitoring and titration, hx, and risk factors. Inpatient. 02/12 Currently atrial fibrillation heart rate 70 to 80s continues on IV Cardizem at 2-1/2/h Seen by cardiology this a.m. attempting to wean off cardiac exam initiated on oral Cardizem every 6 hours TSH magnesium and troponin unremarkable Currently she is on a heparin drip-she will require long-term anticoagulation however she is high risk due to unsteady gait history of falls and alcohol abuse cardiology will review Echo is pending (2) Peripheral edema Current Visit: Yes Status: Acute Assessment and Plan: Acute and new bilateral pedal edema of LEs. 1+ pitting. Pt. denies use of lasix or hx/dx of CHF. 20 mg IVP lasix ONCE. Will add BID dosing once Echocardiogram i s completed if results warrant. 1/5L fluid restriction. BNP ordered. Monitor I&O and daily weight. 02/12 We will continue with Lasix IV daily and closely monitor and creatinine (3) Dyspnea Current Visit: Yes Status: Acute Assessment and Plan: Pt. reports SOB/dypsnea for the past three weeks that has been worsening, orthopnea, increased weight gain, and bilateral pedal edema. Denies home O2 use. Supplemental O2 w/titration and SpO2 monitoring. 20 mg IVP ONCE of lasix and monitor I&O. 1.5L daily fluid restriction. 02/12 Secondary to CHF exacerbation continue with IV Lasix monitor intake and output fluid restriction at 1.5 L daily (4) GERD (gastroesophageal reflux disease) Current Visit: Yes Status: Chronic Assessment and Plan: Hx of chronic GERD. Continue pts. Prilosec. IVP Zofran PRN for N/V. 02/12 History of GERD we will continue Prilosec (5) History of seizures Current Visit: Yes Status: Chronic Assessment and Plan: Hx of seizures. Last reported seizure was two years ago. Continue pts. Carbidopa levodopa. 02/12 Patient has a history of seizures, no seizure activity noted at this time we will continue seizure precautions (6) CKD (chronic kidney disease) stage 3, GFR 30-59 ml/min Current Visit: Yes Status: Chronic Assessment and Plan: Hx of CKD. Currently stage 3 w/GFR of 58 and creatinine of 0.93. Will use IV fluids judiciously if warranted d/t CKD hx and current suspected CHF component. Avoid nephrotoxins. Monitor I&O, daily weight, and f/u labs. 1.5L daily fluid restriction d/t current pedal edema and orthopnea. 02/12 Patient has had history of cKD stage III-currently stable we will closely monitor creatinine during diuresis Monitor intake and output and daily weights No NSAIDs Continue with fluid restriction for now (7) Alcohol abuse Current Visit: Yes Status: Acute Assessment and Plan: 1 patient reports that she drinks approximately 1-2 drinks of Meyers Buna every day to help with her back pain. Reported per cardiology ONLINE CONTENT COORDINATOR that family states it is more 5-6 drinks daily. We will monitor for withdrawal symptoms CIWA precautions (8) DVT prophylaxis Current Visit: Yes Status: Acute Assessment and Plan: Pt. placed on heparin drip d/t new onset of Atrial fibrillation. Monitor pt. for signs of bleeding. 02/12 Currently on heparin drip - Time Spent with Patient Total time spent is greater than 50% in coordination of care (as documented) at patient's floor/unit and/or counseling patient: Internal Medicine: Result - Labs CBC & Chem 7: 02/12/18 00:13 02/12/18 00:13 Labs: Short CBC 02/11/18 02/12/18 Range/Units 17:47 00:13 WBC 7.0 (4.3-11.1) K/mcL Hgb 11.1 L 10.5 L (11.5-15.4) g/dL Hct 36.3 34.0 L (35.3-44.9) % Plt Count 197 (140-400) K/mcL Neutrophils # 3.5 (1.6-8.9) K/mcL BMP 02/12/18 00:13 Sodium 141 Potassium 3.7 Chloride 104 Carbon Dioxide 27 BUN 10 Creatinine 1.18 Glucose 111 H Calcium 9.0 Liver Function 02/12/18 Range/Units 00:13 Total Bilirubin 0.4 (0.3-1.0) mg/dL AST 13 (13-39) Units/L ALT 3 L (7-52) Units/L Alkaline Phosphatase 57 (34-104) Units/L Albumin 3.3 L (3.5-5.7) g/dL - ABG Interpretation ABG results: PT/INR, D-dimer PT 11.9 Seconds (9.4-12.1) 02/11/18 14:44 Consult Discharge Plan - Plan Referrals: Saúl Ballard MD [Primary Care Provider] - (3) Dyspnea Qualifiers: Dyspnea type: orthopnea Qualified Code(s): R06.01 - Orthopnea (4) GERD (gastroesophageal reflux disease) Qualifiers: Esophagitis presence: esophagitis presence not specified Qualified Code(s): K21.9 - Gastro-esophageal reflux disease without esophagitis
[2018-02-12] MEDS: Famotidine 20 MG TABLET PO SCH (21:00)
[2018-02-12] MEDS: Heparin 25,000 UNIT/500 ML D5W 25,000 UNIT/500 ML BAG IVC SCH (23:41)
[2018-02-13 04:00] LABS: Basophils # 0.1 K/mcL (0.0-0.2); Basophils % 0.9 %; Eosinophils # 0.1 K/mcL (0.0-0.6); Eosinophils % 2.1 %; Hematocrit 29.5 % (35.3-44.9); Hemoglobin 9.3 g/dL (11.5-15.4); Immature Granulocytes % 0.1 % (0-4); Lymphocytes # 2.1 K/mcL (0.6-4.6); Lymphocytes % 30.4 %; Mean Corpuscular HGB Conc 31.5 g/dL (31.6-35.5); Mean Corpuscular Hemoglobin 27.7 pg (28.0-33.3); Mean Corpuscular Volume 87.8 fL (83.0-100.0); Mean Platelet Volume 12.7 fL (9.4-12.4); Monocytes # 0.7 K/mcL (0.0-1.3); Monocytes % 9.6 %; Neutrophils # 3.9 K/mcL (1.6-8.9); Platelet Count 172 K/mcL (140-400); Red Blood Count 3.36 M/mcL (3.82-4.97); Red Cell Distribution Width 17.9 % (11.5-14.5); Segmented Neutrophils % 56.9 %
[2018-02-13 04:23] LABS: Alanine Aminotransferase < 3 Units/L (7-52); Albumin/Globulin Ratio 1.3 (1.1-2.2); Alkaline Phosphatase 43 Units/L (34-104); Aspartate Amino Transferase 12 Units/L (13-39); BUN/Creatinine Ratio 13 (6-26); Bilirubin,Total 0.4 mg/dL (0.3-1.0); Blood Urea Nitrogen 12 mg/dL (8-23); Calcium 8.5 mg/dL (8.6-10.3); Carbon Dioxide 26 mEq/L (23-29); Chloride 102 mEq/L (98-107); Globulin 2.4 g/dL (2.4-3.5); Glucose 99 mg/dL (70-105); Osmolality,Calculated 286 (280-300); Potassium 3.4 mEq/L (3.5-5.1); Sodium 138 mEq/L (136-145); Total Protein 5.4 g/dL (6.4-8.9); eGFR For Non-African Americans 57 (> 60)
--- NOTE | 2018-02-13 08:12 | Cardiology Progress Note ---
Date of Encounter: 02/13/18 Time of Encounter: 08:10 Assessment and Plan (1) New onset atrial fibrillation Current Visit: Yes Status: Acute Per Cardiology: Currently A. fib in the 50's to 60's. Systolic blood pressure stable. We will convert to Cardizem CD 120 mg by mouth daily. Echo results noted: Impressions: Technically adequate exam. LVEF 60-65%. Indeterminate diastolic function. Mild concentric left ventricular hypertrophy. Normal right ventricular structure and function. Moderately to severe biatrial enlargement. Mild-moderate mitral regurgitation. Moderate-severe tricuspid regurgitation. Regarding long-term anticoagulation, currently on IV heparin drip. Patient interested in DOAC. Discussed and reviewed with Dr. Olea, agreeable to attempt long-term anticoagulation for now. Patient instructed to utilize a cane at home. We will place PT consult. Patient will need better pain control for back pain and encouraged to decreased alcohol intake (drinking for pain relief). Patient instructed on education regarding bleeding and blood loss. We will need to monitor closely. At this point benefit outweighs the risk and will proceed with anticoagulation. García check pending for Eliqusi 5mg PO BID. (2) Dyspnea Current Visit: Yes Status: Acute Per Cardiology: Chest x-ray shows small left pleural effusion. BNP noted to be 345. On IV La six 20 mg twice a day. Net -525ml. Does not utilize oxygen at home, currently on 2 L O2. Qualifiers: Dyspnea type: orthopnea Qualified Code(s): R06.01 - Orthopnea Discussion w patient/family: The assessment and plan as outlined above was discussed with the patient and/or family members who expressed understanding and agreement. All questions were answered. Thank you for involving us in the care of your patient. Please call with any questions. Subjective Principal diagnosis: afib Interval history: Patient reports shortness of breath has improved. Reports improvement in edema as well. She denies any chest pain or palpitations. Reports back pain better controlled. Objective Vital Signs, Last 4 Hours Temp Pulse Resp BP Pulse Ox 02/13/18 07:05 98.1 F 88 16 108/69 97 General: Conversant, No Apparent Distress HEENT: Atraumatic, Normocephaly, Mucus Membranes Moist Neck: No JVD, Normal carotid pulses Cardiac: Normal S1 and S2, No Murmur, Other (Irregularly irregular) Lungs: Normal Breath Sounds, Other (Slightly diminished bilateral bases) Neuro: Alert and responsive, No focal deficits noted Abdomen: Soft, Non-Tender Skin: No rashes noted on visualized skin Musculoskeletal: No Chest Wall Tenderness Extremities: No Clubbing, No Cyanosis, Normal Pulses, Other (+1 bilateral lower extremity nonpitting edema) Results 02/13/18 02:44 02/13/18 02:44 Lab Results Laboratory Tests 02/13/18 02/13/18 02:44 02:44 Hgb 9.3 L Hct 29.5 L Potassium 3.4 L Creatinine 0.94 Est GFR (Non-Af Amer) 57 L Impressions Echocardiogram 02/12/18 15:45 Impressions: Technically adequate exam. LVEF 60-65%. Indeterminate diastolic function. Mild concentric left ventricular hypertrophy. Normal right ventricular structure and function. Moderately to severe biatrial enlargement. Mild-moderate mitral regurgitation. Moderate-severe tricuspid regurgitation. Intake & Output 02/10/18 02/11/18 02/12/18 02/13/18 23:59 23:59 23:59 23:59 Intake Total 50 / 50 600.0 / 600.0 Output Total 600 / 600 375 / 375 200 / 200 Balance -550 / -550 225.0 / 225.0 -200 / -200 Weight 68.492 kg 69.4 kg 68.5 kg Active Medications Acetaminophen (Tylenol) 650 mg PO Q6HR PRN PRN Reason: Mild Pain/Fever Stop: 08/13/18 15:32 Last Admin: 02/12/18 23:06 Dose: 650 mg Carbidopa/Levodopa (Sinemet) 1 each PO TID [facility] Stop: 08/13/18 21:01 Last Admin: 02/12/18 21:00 Dose: 1 each Citalopram Hydrobromide (Celexa) 20 mg PO DAILY [facility] Stop: 08/14/18 09:01 Last Admin: 02/12/18 07:55 Dose: 20 mg Diltiazem HCl (Cardizem) 30 mg PO Q6HR [facility] Stop: 08/14/18 18:01 Last Admin: 02/13/18 05:46 Dose: 30 mg Estrogens Conjugated (Premarin) 1.25 mg PO DAILY [facility] Stop: 08/14/18 09:01 Last Admin: 02/12/18 07:55 Dose: 1.25 mg Famotidine (Pepcid) 10 mg PO BID [facility]; Protocol Stop: 08/14/18 21:01 Last Admin: 02/12/18 21:00 Dose: 10 mg Folic Acid (Folic Acid) 1 mg PO DAILY [facility] Stop: 08/15/18 09:01 Furosemide (Lasix) 20 mg IVP DAILY [facility] Stop: 08/15/18 09:01 Heparin Sodium (Porcine) (Heparin) 4,800 unit 70 unit/kg (4800 unit) IVP Q6HR PRN PRN Reason: SEE COMMENTS Stop: 08/13/18 14:44 Heparin Sodium (Porcine) (Heparin) 2,400 unit 35 unit/kg (2400 unit) IVP Q6H PRN PRN Reason: SEE COMMENTS Stop: 08/13/18 14:44 Heparin Sodium/Dextrose (Heparin 25,000 Unit/500 Ml D5w) 25,000 unit in 500 mls @ 19.178 mls/hr IVC .Q24H [facility]; Protocol Stop: 08/13/18 14:46 Last Admin: 02/12/18 23:41 Dose: 11.94 unit/kg/hr, 16.35 mls/hr Isosorbide Mononitrate (Imdur) 30 mg PO DAILY [facility] Stop: 08/15/18 09:01 Lorazepam (Ativan) 1 mg IVP Q1H PRN PRN Reason: Alcohol Withdrawal Stop: 08/14/18 15:29 Lorazepam (Ativan) 2 mg IVP Q4HR PRN PRN Reason: CIWA Score of 10-21 Stop: 08/14/18 15:29 Lorazepam (Ativan) 4 mg IVP Q4HR PRN PRN Reason: CIWA Score of 22-45 Stop: 08/14/18 15:29 Naloxone HCl (Narcan) 0.4 mg IVP Q2MIN PRN PRN Reason: SEE COMMENTS Stop: 08/13/18 15:32 Omeprazole (Prilosec) 40 mg PO DAILY@0730 [facility] Stop: 08/14/18 07:31 Last Admin: 02/12/18 06:23 Dose: 40 mg Promethazine HCl (Phenergan) 12.5 mg IVP Q4HR PRN PRN Reason: Nausea And Vomiting Stop: 08/14/18 15:29 Thiamine HCl (Vitamin B-1) 100 mg PO DAILY [facility] Stop: 08/15/18 09:01 Trazodone HCl (Trazodone) 50 mg PO HS PRN PRN Reason: Insomnia Stop: 08/13/18 15:54 Vitamin B Complex/Vit C/Vit E (Stresstab) 1 each PO DAILY [facility] Stop: 08/15/18 09:01 - Imaging and Cardiology Echo: report reviewed - EKG Interpretation EKG results cardiology: other (Currently A. fib in the 50s to 60s on telemetry) Consult Discharge Plan - Plan Referrals: Saúl Ballard MD [Primary Care Provider] -
[2018-02-13] MEDS: Carbidopa/Levodopa 25/100 TABLET PO SCH ×3 (08:52→21:04)
[2018-02-13] MEDS: Famotidine 20 MG TABLET PO SCH ×2 (08:52→21:04)
[2018-02-13] MEDS: Folic Acid 1 MG TABLET PO SCH (08:52)
[2018-02-13] MEDS: Isosorbide MONOnitrate (24 HR) 30 MG TAB.ER.24H PO SCH (08:53)
[2018-02-13] MEDS: Thiamine (B-1) 100 MG TABLET PO SCH (08:53)
[2018-02-13] MEDS: Furosemide 20 MG/2 ML VIAL IVP SCH (08:53)
[2018-02-13] MEDS: Vitamin B Complex/Vit C/Vit E 1 EACH TABLET PO SCH (08:54)
[2018-02-13] MEDS: Diltiazem CD (24hr) 120 MG CAPSULE PO SCH (09:00)
[2018-02-13] MEDS: Acetaminophen 325 MG TABLET PO PRN (09:03)
--- NOTE | 2018-02-13 09:10 | Internal Med Progress Note ---
Hospitalist Progress Note - Encounter Date of Encounter: 02/13/18 Time of Encounter: 13:19 - Subjective Interval History: Patient was seen and examined at bedside. Swelling has improved to her extremities states her breathing is much better denies any chest pain or palpitations while sitting in bed. Patient did ambulate and room and to her bathroom she did experience some palpitations oxygen saturations 96% on room air during ambulation the patient did experience some shortness of breath. - Exam Vitals: Temp Pulse Resp BP Pulse Ox 98.1 F 88 16 108/69 97 02/13/18 07:05 02/13/18 07:05 02/13/18 07:05 02/13/18 07:05 02/13/18 07:05 Exam: General: Conversant, No Apparent Distress HEENT: Atraumatic, Normocephaly, Mucus Membranes Moist Neck: No JVD, Normal carotid pulses Cardiac: Normal S1 and S2, No Murmur, Other (Irregularly irregular) Lungs: Normal Breath Sounds, No Wheeze, Rales, Rhonchi Neuro: Alert and responsive, No focal deficits noted Abdomen: Soft, Non-Tender Skin: No rashes noted on visualized skin Musculoskeletal: No Chest Wall Tenderness Extremities: No Clubbing, No Cyanosis, Normal Pulses, Other (+2 bilateral lower extremity edema) - Assessment and Plan (1) New onset atrial fibrillation Current Visit: Yes Status: Acute Assessment and Plan: Acute and new onset of atrial fibrillation. Pt. denies cardiac hx, hx of Afib, or CHF. CXR today shows small left pleural effusion and minimal atelectasis. Otherwise no acute cardiopulmonary process is seen. Echocardiogram ordered. Continuous cardiac telemetry. Supplemental O2 w/titration and SpO2 monitoring for SOB/orthopnea. Pt. placed on Cardizem gtt in ED as well as heparin gtt. Cardiology consult placed in ED and I appreciate the consult and recommendations as always. Pt. discussed w/Dr. Gayle who agrees w/plan of care. Pt. is high risk for further morbidity and complications based on new onset of Afib, suspected CHF (awaiting results of Echocardiogram), SOB/dyspnea, Cardizem and heparin gtts requiring close monitoring and titration, hx, and risk factors. Inpatient. 02/12 Currently atrial fibrillation heart rate 70 to 80s continues on IV Cardizem at 2-1/2/h Seen by cardiology this a.m. attempting to wean off cardiac exam initiated on oral Cardizem every 6 hours TSH magnesium and troponin unremarkable Currently she is on a heparin drip-she will require long-term anticoagulation however she is high risk due to unsteady gait history of falls and alcohol abuse cardiology will review Echo is pending 02/13 Continues in A. fib at rest heart rate is 70-80 patient did get up and eating poorly in the room and went to the bathroom and her heart rate went to 120 - however did return to baseline once resting. We will continue with oral Cardizem -patient was placed on Eliquise per cardiology which we will continue heparin drip has been discontinued we will continue to monitor (2) Peripheral edema Current Visit: Yes Status: Acute Assessment and Plan: Acute and new bilateral pedal edema of LEs. 1+ pitting. Pt. denies use of lasix or hx/dx of CHF. 20 mg IVP lasix ONCE. Will add BID dosing once Echocardiogram is completed if results warrant. 1/5L fluid restriction. BNP ordered. Monitor I&O and daily weight. 02/12 We will continue with Lasix IV daily and closely monitor and creatinine 02/13 Improving we will continue with Lasix for now (3) Dyspnea Current Visit: Yes Status: Acute Assessment and Plan: Pt. reports SOB/dypsnea for the past three weeks that has been worsening, orthopnea, increased weight gain, and bilateral pedal edema. Denies home O2 use. Supplemental O2 w/titration and SpO2 monitoring. 20 mg IVP ONCE of lasix and monitor I&O. 1.5L daily fluid restriction. 02/12 Secondary to CHF exacerbation continue with IV Lasix monitor intake and output fluid restriction at 1.5 L daily 02/13 Secondary to CHF exacerbation continue with Lasix encouraged patient to ambulate currently off oxygen on room air monitor SPO2 (4) GERD (gastroesophageal reflux disease) Current Visit: Yes Status: Chronic Assessment and Plan: Hx of chronic GERD. Continue pts. Prilosec. IVP Zofran PRN for N/V. 02/12 History of GERD we will continue Prilosec 02/13 history of GERD we will continue Prilosec (5) History of seizures Current Visit: Yes Status: Chronic Assessment and Plan: Hx of seizures. Last reported seizure was two years ago. Continue pts. Carbidopa levodopa. 02/12 Patient has a history of seizures, no seizure activity noted at this time we will continue seizure precautions 02/13 No seizure activity noted at this time continue seizure precautions (6) CKD (chronic kidney disease) stage 3, GFR 30-59 ml/min Current Visit: Yes Status: Chronic Assessment and Plan: Hx of CKD. Currently stage 3 w/GFR of 58 and creatinine of 0.93. Will use IV fluids judiciously if warranted d/t CKD hx and current suspected CHF component. Avoid nephrotoxins. Monitor I&O, daily weight, and f/u labs. 1.5L daily fluid re striction d/t current pedal edema and orthopnea. 02/12 Patient has had history of cKD stage III-currently stable we will closely monitor creatinine during diuresis Monitor intake and output and daily weights No NSAIDs Continue with fluid restriction for now 02/13 Creatinine remained stable continue with diuresis and monitor Continue with I&O daily weight No NSAIDs Continue fluid restriction for now (7) Alcohol abuse Current Visit: Yes Status: Acute Assessment and Plan: 1 patient reports that she drinks approximately 1-2 drinks of [place] every day to help with her back pain. Reported per cardiology DYNAMICIST that family states it is more 5-6 drinks daily. We will monitor for withdrawal symptoms CIWA precautions 02/13 symptoms noted continue with CIWA (8) DVT prophylaxis Current Visit: Yes Status: Acute Assessment and Plan: Pt. placed on heparin drip d/t new onset of Atrial fibrillation. Monitor pt. for signs of bleeding. 02/12 Currently on heparin drip (9) CHF (congestive heart failure) Current Visit: Yes Status: Acute Assessment and Plan: Patient has been experiencing orthopnea left shoulder swelling and shortness of breath on exertion. Initiated on Lasix 20 mg IV daily which we will continue- shortness of breath has improved as well as lower extremity swelling we will closely monitor creatinine Echo was completed which did show LVEF 60-65%. * Indeterminate diastolic function. * Mild concentric left ventricular hypertrophy. Right Ventricle * Normal right ventricular structure and function. Left Atrium * Moderately dilated left atrium. Right Atrium * Severely dilated right atrium. Interatrial Septum * No evidence of PFO by color Doppler. Moderate to severe tricuspid regurg mild pulmonary hypertension Continue with oxygen as needed Continue with Imdur - Time Spent with Patient Total time spent is greater than 50% in coordination of care (as documented) at patient's floor/unit and/or counseling patient: Internal Medicine: Result - Labs CBC & Chem 7: 02/13/18 02:44 02/13/18 02:44 Labs: Short CBC 02/13/18 Range/Units 02:44 WBC 6.8 (4.3-11.1) K/mcL Hgb 9.3 L (11.5-15.4) g/dL Hct 29.5 L (35.3-44.9) % Plt Count 172 (140-400) K/mcL Neutrophils # 3.9 (1.6-8.9) K/mcL BMP 02/13/18 02:44 Sodium 138 Potassium 3.4 L Chloride 102 Carbon Dioxide 26 BUN 12 Creatinine 0.94 Glucose 99 Calcium 8.5 L Liver Function 02/13/18 Range/Units 02:44 Total Bilirubin 0.4 (0.3-1.0) mg/dL AST 12 L (13-39) Units/L ALT < 3 L (7-52) Units/L Alkaline Phosphatase 43 (34-104) Units/L Albumin 3.0 L (3.5-5.7) g/dL - ABG Interpretation ABG results: PT/INR, D-dimer PT 11.9 Seconds (9.4-12.1) 02/11/18 14:44 - Impressions Impressions Echocardiogram 02/12/18 15:45 Impressions: Technically adequate exam. LVEF 60-65%. Indeterminate diastolic function. Mild concentric left ventricular hypertrophy. Normal right ventricular structure and function. Moderately to severe biatrial enlargement. Mild-moderate mitral regurgitation. Moderate-severe tricuspid regurgitation. Consult Discharge Plan - Plan Referrals: Saúl Ballard MD [Primary Care Provider] - (3) Dyspnea Qualifiers: Dyspnea type: orthopnea Qualified Code(s): R06.01 - Orthopnea (4) GERD (gastroesophageal reflux disease) Qualifiers: Esophagitis presence: esophagitis presence not specified Qualified Code(s): K21.9 - Gastro-esophageal reflux disease without esophagitis (9) CHF (congestive heart failure) Qualifiers: Heart failure type: unspecified Heart failure chronicity: acute Qualified Code(s): I50.9 - Heart failure, unspecified
[2018-02-13 10:27] LABS: Bilirubin,Urine Negative (Negative); Blood,Urine Trace (Negative); Clarity,Urine Cloudy (Clear); Color,Urine Yellow (Yellow); Glucose,Urine (UA) Normal (Normal); Ketones,Urine Negative (Negative); Leukocyte Esterase,Urine Large (Negative); Nitrite,Urine Negative (Negative); PH,Urine 6.5 pH Units (5.0-8.0); Protein,Urine Negative (Neg-Trace); Specific Gravity,Urine 1.006 (1.010-1.025); Urobilinogen,Urine Normal (Normal)
[2018-02-13 10:28] LABS: Bacteria,Urine Few per hpf (None-Few); Hyaline Casts,Urine None Seen per lpf (None-Few); Squamous Epithelial Cell,Urine Many per lpf (None-Few); WBC,Urine 50-100 per hpf (0-3)
--- NOTE | 2018-02-13 10:36 | Event Note ---
Date of Encounter: 02/13/18 Time of Encounter: 10:35 - Cardiology Event Note Monthly co-pay for Eliquis noted to be $24 per month. Will initiate, discontinue IV heparin drip. Cardiology signing off, reconsult as needed, follow-up arranged.
[2018-02-13] MEDS: Apixaban 5 MG TABLET PO SCH ×2 (11:58→21:04)
--- NOTE | 2018-02-13 12:57 | Discharge Summary ---
Orders not resulted at time of discharge: Pending orders 02/13/18 20:56 Heparin anti-factor XA UFH [COAG] Timed 02/14/18 04:00 Complete Blood Count [HEME] AM 0400 Comprehensive Metabolic Panel AM 0400 02/15/18 04:00 Complete Blood Count [HEME] AM 0400 Comprehensive Metabolic Panel AM 0400 02/16/18 04:00 Complete Blood Count [HEME] AM 0400 Comprehensive Metabolic Panel AM 0400 Date of Encounter: 02/13/18 Time of Encounter: 12:37 - Discharge Diagnosis (1) New onset atrial fibrillation Status: Acute (2) Peripheral edema Status: Acute (3) Dyspnea Status: Acute Qualifiers: Dyspnea type: orthopnea Qualified Code(s): R06.01 - Orthopnea (4) GERD (gastroesophageal reflux disease) Status: Chronic Qualifiers: Esophagitis presence: esophagitis presence not specified Qualified Code(s): K21.9 - Gastro-esophageal reflux disease without esophagitis (5) History of seizures Status: Chronic (6) CKD (chronic kidney disease) stage 3, GFR 30-59 ml/min Status: Chronic (7) Alcohol abuse Status: Acute (8) DVT prophylaxis Status: Acute Hospital course: Ms. Carrasquillo is a 82 year old female - Time Spent with Patient Total time spent providing and/or coordinating discharge services: - Discharge Medications Home Medications: Carbidopa/Levodopa [Carbidopa-Levodopa 25-100 Tab] 1 tab PO TID 02/11/18 [History] Citalopram Hydrobromide [Citalopram HBr] 20 mg PO DAILY 02/11/18 [History] Estrogens, Conjugated [Premarin] 1.25 mg PO DAILY 02/11/18 [History] Omeprazole [PriLOSEC] 40 mg PO DAILY 02/11/18 [History] traZODone [TraZODone] 50 mg PO HS PRN 02/11/18 [History] Allergies/Adverse Reactions: Allergy/AdvReac Type Severity Reaction Status Date / Time ciprofloxacin [From Cipro] Allergy See Verified 02/11/18 12:22 Comments codeine Allergy Nausea Verified 02/11/18 12:22 latex Allergy Blister Verified 02/11/18 12:22 pantoprazole [From Protonix] Allergy Itching Verified 02/11/18 12:22 Sulfa (Sulfonamide Allergy Rash Verified 02/11/18 12:22 Antibiotics) Zolpidem [From Ambien] Allergy Hallucinati Verified 02/11/18 12:22 ng tramadol AdvReac Dizziness Verified 02/11/18 20:37 Date of admission: 02/11/18 15:31 Primary care physician: Saúl Ballard MD Consults: 02/11/18 14:42 Consult to Cardiology [CONS] Stat Comment: Consulting Provider: Cardiology [place] Reason for Consult: new onset atrial fib Call Completed: No 02/11/18 15:43 Consult to Wagon Drill Operator [CONS] Routine Reason for SW Consult: Please assess patient for possible home needs ([place]. O2) for post-discharge planning. 02/13/18 10:13 Consult to Physical Therapy [CONS] Routine Comment: Evaluate, develop and implement POC Reason for Consult: discharge planning Does patient have active BEDREST order?: No Is patient medically & hemodynamically stable?: Yes - Constitutional Vitals: Temp Pulse Resp BP Pulse Ox 98.0 F 88 16 119/75 94 02/13/18 11:41 02/13/18 11:41 02/13/18 11:41 02/13/18 11:41 02/13/18 11:41 General appearance: Present: cooperative, mild distress (SOB/dyspnea), A&O X 3, pleasant, answers questions appropriately - Patient Status Condition: Good - Discharge Instructions Follow Up With: Saúl Ballard MD [Primary Care Provider] -
[2018-02-13] MEDS: *HR* HYDROcodone/Acet 5/325 mg TABLET PO PRN (16:19)
[2018-02-13] MEDS ORDERED: *HR* LORazepam 2 MG/ML VIAL IVP ONE (22:33)
[2018-02-14] MEDS ORDERED: Miconazole 2% cream 118 GM TUBE TP SCH (00:15)
[2018-02-14] MEDS: Clotrimazole Vag CRM 45 GM TUBE VG SCH ×4 (02:56→20:41)
[2018-02-14 03:40] LABS: Hematocrit 31.1 % (35.3-44.9); Hemoglobin 9.4 g/dL (11.5-15.4); Lymphocytes % 28.4 %; Mean Corpuscular HGB Conc 30.2 g/dL (31.6-35.5); Mean Corpuscular Hemoglobin 26.7 pg (28.0-33.3); Mean Corpuscular Volume 88.4 fL (83.0-100.0); Mean Platelet Volume 12.6 fL (9.4-12.4); Monocytes % 9.1 %; Platelet Count 170 K/mcL (140-400); Red Blood Count 3.52 M/mcL (3.82-4.97); Red Cell Distribution Width 17.8 % (11.5-14.5)
[2018-02-14 03:41] LABS: Basophils # 0.1 K/mcL (0.0-0.2); Basophils % 0.8 %; Eosinophils # 0.2 K/mcL (0.0-0.6); Eosinophils % 2.7 %; Lymphocytes # 1.8 K/mcL (0.6-4.6); Monocytes # 0.6 K/mcL (0.0-1.3); Neutrophils # 3.8 K/mcL (1.6-8.9)
[2018-02-14 04:01] LABS: Alanine Aminotransferase < 3 Units/L (7-52); Albumin 2.9 g/dL (3.5-5.7); Albumin/Globulin Ratio 1.1 (1.1-2.2); Alkaline Phosphatase 46 Units/L (34-104); Aspartate Amino Transferase 11 Units/L (13-39); BUN/Creatinine Ratio 10 (6-26); Bilirubin,Total 0.5 mg/dL (0.3-1.0); Blood Urea Nitrogen 9 mg/dL (8-23); Calcium 8.5 mg/dL (8.6-10.3); Carbon Dioxide 28 mEq/L (23-29); Chloride 104 mEq/L (98-107); Globulin 2.7 g/dL (2.4-3.5); Glucose 92 mg/dL (70-105); Osmolality,Calculated 284 (280-300); Potassium 3.5 mEq/L (3.5-5.1); Sodium 138 mEq/L (136-145); Total Protein 5.6 g/dL (6.4-8.9); eGFR For Non-African Americans > 60 (> 60)
--- NOTE | 2018-02-14 10:05 | Internal Med Progress Note ---
Hospitalist Progress Note - Encounter Date of Encounter: 02/14/18 Time of Encounter: 09:54 - Subjective Interval History: Patient was seen and examined at bedside. Swelling has improved- she is SOB on exertion and HR up on ambulation- EKG this AM show HR 102 -Overnight monitor shows HR-90-110, she is SOB on exertion - discussed with Amparo Neville NP cardiology increase cardizem to 180mg - Exam Vitals: Temp Pulse Resp BP Pulse Ox 97.8 F 96 16 128/82 97 02/14/18 07:06 02/14/18 07:06 02/14/18 07:06 02/14/18 07:06 02/14/18 07:06 Exam: General: Conversant, No Apparent Distress HEENT: Atraumatic, Normocephaly, Mucus Membranes Moist Neck: No JVD, Normal carotid pulses Cardiac: Normal S1 and S2, No Murmur, Other (Irregularly irregular) Lungs: Normal Breath Sounds, No Wheeze, Rales, Rhonchi Neuro: Alert and responsive, No focal deficits noted Abdomen: Soft, Non-Tender Skin: No rashes noted on visualized skin Musculoskeletal: No Chest Wall Tenderness Extremities: No Clubbing, No Cyanosis, Normal Pulses, Other (+2 bilateral lower extremity edema) - Assessment and Plan (1) New onset atrial fibrillation Current Visit: Yes Status: Acute Assessment and Plan: Acute and new onset of atrial fibrillation. Pt. denies cardiac hx, hx of Afib, or CHF. CXR today shows small left pleural effusion and minimal atelectasis. Otherwise no acute cardiopulmonary process is seen. Echocardiogram ordered. Continuous cardiac telemetry. Supplemental O2 w/titration and SpO2 monitoring for SOB/orthopnea. Pt. placed on Cardizem gtt in ED as well as heparin gtt. Cardiology consult placed in ED and I appreciate the consult and recommendations as always. Pt. discussed w/Dr. Gayle who agrees w/plan of care. Pt. is high risk for further morbidity and complications based on new onset of Afib, suspected CHF (awaiting results of Echocardiogram), SOB/dyspnea, Cardizem and heparin gtts requiring close monitoring and titration, hx, and risk factors. Inpatient. 02/12 Currently atrial fibrillation heart rate 70 to 80s continues on IV Cardizem at 2-1/2/h Seen by cardiology this a.m. attempting to wean off cardiac exam initiated on oral Cardizem every 6 hours TSH magnesium and troponin unremarkable Currently she is on a heparin drip-she will require long-term anticoagulation however she is high risk due to unsteady gait history of falls and alcohol abuse cardiology will review Echo is pending 02/13 Continues in A. fib at rest heart rate is 70-80 patient did get up and eating poorly in the room and went to the bathroom and her heart rate went to 120 - however did return to baseline once resting. We will continue with oral Cardizem -patient was placed on Eliquise per cardiology which we will continue heparin drip has been discontinued we will continue to monitor 02/14 Increased HR on monitor cont afib- has SOB on exertion increased cardizem 180mg will monitor (2) Peripheral edema Current Visit: Yes Status: Acute Assessment and Plan: Acute and new bilateral pedal edema of LEs. 1+ pitting. Pt. denies use of lasix or hx/dx of CHF. 20 mg IVP lasix ONCE. Will add BID dosing once Echocardiogram is completed if results warrant. 1/5L fluid restriction. BNP ordered. Monitor I&O and daily weight. 02/12 We will continue with Lasix IV daily and closely monitor and creatinine 02/13 Improving we will continue with Lasix for now 02/14 Improving creatinine stable cont with lasix - may switch to oral tomorrow (3) Dyspnea Current Visit: Yes Status: Acute Assessment and Plan: Pt. reports SOB/dypsnea for the past three weeks that has been worsening, orthopnea, increased weight gain, and bilateral pedal edema. Denies home O2 use. Supplemental O2 w/titration and SpO2 monitoring. 20 mg IVP ONCE of lasix and monitor I&O. 1.5L daily fluid restriction. 02/12 Secondary to CHF exacerbation continue with IV Lasix monitor intake and output fluid restriction at 1.5 L daily 02/13 Secondary to CHF exacerbation continue with Lasix encouraged patient to ambulate currently off oxygen on room air monitor SPO2 02/14 cont to have SOB on exertion and rapid HR- afib- sats are stable -we will increase cardizem to 180 and see if improve HR breathing (4) GERD (gastroesophageal reflux disease) Current Visit: Yes Status: Chronic Assessment and Plan: Hx of chronic GERD. Continue pts. Prilosec. IVP Zofran PRN for N/V. 02/12 History of GERD we will continue Prilosec 02/13 history of GERD we will continue Prilosec 02/14 cont prilosec (5) History of seizures Current Visit: Yes Status: Chronic Assessment and Plan: Hx of seizures. Last reported seizure was two years ago. Continue pts. Carbidopa levodopa. 02/12 Patient has a history of seizures, no seizure activity noted at this time we will continue seizure precautions 02/13 No seizure activity noted at this time continue seizure precautions 02/14 no seizure activity cont with seizure precautions (6) CKD (chronic kidney disease) stage 3, GFR 30-59 ml/min Current Visit: Yes Status: Chronic Assessment and Plan: Hx of CKD. Currently stage 3 w/GFR of 58 and creatinine of 0.93. Will use IV fluids judiciously if warranted d/t CKD hx and current suspected CHF component. Avoid nephrotoxins. Monitor I&O, daily weight, and f/u labs. 1.5L daily fluid restriction d/t current pedal edema and orthopnea. 02/12 Patient has had history of cKD stage III-currently stable we will closely monitor creatinine during diuresis Monitor intake and output and daily weights No NSAIDs Continue with fluid restriction for now 02/13 Creatinine remained stable continue with diuresis and monitor Continue with I&O daily weight No NSAIDs Continue fluid restriction for now 02/14 stable creatinine cont with diuresis cont I/O daily weights NO NSAIDS- apparently patient has been taking Nsaids at home cont fluid restrictions (7) Alcohol abuse Current Visit: Yes Status: Acute Assessment and Plan: 1 patient reports that she drinks approximately 1-2 drinks of [place] every day to help with her back pain. Reported per cardiology FURNITURE BUILDER that family states it is more 5-6 drinks daily. We will monitor for withdrawal symptoms CIWA precautions 02/13 symptoms noted continue with CIWA 02/14 No sx noted cont with CIWA (8) DVT prophylaxis Current Visit: Yes Status: Acute Assessment and Plan: Pt. placed on heparin drip d/t new onset of Atrial fibrillation. Monitor pt. for signs of bleeding. 02/12 Currently on heparin drip (9) CHF (congestive heart failure) Current Visit: Yes Status: Acute Assessment and Plan: Patient has been experiencing orthopnea left shoulder swelling and shortness of breath on exertion. Initiated on Lasix 20 mg IV daily which we will continue- shortness of breath has improved as well as lower extremity swelling we will closely monitor creatinine Echo was completed which did show LVEF 60-65%. * Indeterminate diastolic function. * Mild concentric left ventricular hypertrophy. Right Ventricle * Normal right ventricular structure and function. Left Atrium * Moderately dilated left atrium. Right Atrium * Severely dilated right atrium. Interatrial Septum * No evidence of PFO by color Doppler. Moderate to severe tricuspid regurg mild pulmonary hypertension Continue with oxygen as needed Continue with Imdur 02/14 cont with lasix 20 mg I daily and will switch to oral tomorrow - Time Spent with Patient Total time spent is greater than 50% in coordination of care (as documented) at patient's floor/unit and/or counseling patient: Internal Medicine: Result - Labs CBC & Chem 7: 02/14/18 02:42 02/14/18 02:42 Labs: Short CBC 02/14/18 Range/Units 02:42 WBC 6.4 (4.3-11.1) K/mcL Hgb 9.4 L (11.5-15.4) g/dL Hct 31.1 L (35.3-44.9) % Plt Count 170 (140-400) K/mcL Neutrophils # 3.8 (1.6-8.9) K/mcL BMP 02/14/18 02:42 Sodium 138 Potassium 3.5 Chloride 104 Carbon Dioxide 28 BUN 9 Creatinine 0.87 Glucose 92 Calcium 8.5 L Liver Function 02/14/18 Range/Units 02:42 Total Bilirubin 0.5 (0.3-1.0) mg/dL AST 11 L (13-39) Units/L ALT < 3 L (7-52) Units/L Alkaline Phosphatase 46 (34-104) Units/L Albumin 2.9 L (3.5-5.7) g/dL Urine 02/13/18 Range/Units 10:14 Urine Color Yellow (Yellow) Urine Clarity Cloudy A (Clear) Urine pH 6.5 (5.0-8.0) pH Units Ur Specific [place] 1.006 L (1.010-1.025) Urine Protein Negative (Neg-Trace) mg/dL Urine Glucose (UA) Normal (Normal) mg/dL - ABG Interpretation ABG results: PT/INR, D-dimer PT 11.9 Seconds (9.4-12.1) 02/11/18 14:44 Consult Discharge Plan - Plan Referrals: [place],Hays, MD [Primary Care Provider] - 02/18/18 9:45 am (3) Dyspnea Qualifiers: Dyspnea type: orthopnea Qualified Code(s): R06.01 - Orthopnea (4) GERD (gastroesophageal reflux disease) Qualifiers: Esophagitis presence: esophagitis presence not specified Qualified Code(s): K21.9 - Gastro-esophageal reflux disease without esophagitis (9) CHF (congestive heart failure) Qualifiers: Heart failure type: unspecified Heart failure chronicity: acute Qualified Code(s): I50.9 - Heart failure, unspecified
[2018-02-14] MEDS: Isosorbide MONOnitrate (24 HR) 30 MG TAB.ER.24H PO SCH (10:25)
[2018-02-14] MEDS: Thiamine (B-1) 100 MG TABLET PO SCH (10:25)
[2018-02-14] MEDS: Furosemide 20 MG/2 ML VIAL IVP SCH (10:26)
[2018-02-14] MEDS: Apixaban 5 MG TABLET PO SCH ×2 (10:26→20:29)
[2018-02-14] MEDS: *HR* HYDROcodone/Acet 5/325 mg TABLET PO PRN ×2 (10:26→20:29)
[2018-02-14] MEDS: Carbidopa/Levodopa 25/100 TABLET PO SCH ×3 (10:26→20:28)
[2018-02-14] MEDS: Famotidine 20 MG TABLET PO SCH ×2 (10:26→20:29)
[2018-02-14] MEDS: Folic Acid 1 MG TABLET PO SCH (10:26)
[2018-02-14] MEDS: Vitamin B Complex/Vit C/Vit E 1 EACH TABLET PO SCH (10:27)
[2018-02-14] MEDS: Diltiazem CD (24hr) 180 MG CAPSULE PO SCH (10:31)
[2018-02-14] MEDS: Diltiazem CD (24hr) 120 MG CAPSULE PO SCH (16:48)
[2018-02-15] MEDS: Acetaminophen 325 MG TABLET PO PRN (02:05)
[2018-02-15 05:06] LABS: Basophils # 0.1 K/mcL (0.0-0.2); Basophils % 0.8 %; Eosinophils # 0.1 K/mcL (0.0-0.6); Eosinophils % 2.2 %; Hematocrit 30.5 % (35.3-44.9); Hemoglobin 9.3 g/dL (11.5-15.4); Immature Granulocytes % 0.3 % (0-4); Lymphocytes % 30.5 %; Mean Corpuscular HGB Conc 30.5 g/dL (31.6-35.5); Mean Corpuscular Hemoglobin 26.8 pg (28.0-33.3); Mean Corpuscular Volume 87.9 fL (83.0-100.0); Mean Platelet Volume 12.8 fL (9.4-12.4); Monocytes # 0.7 K/mcL (0.0-1.3); Monocytes % 10.6 %; Neutrophils # 3.6 K/mcL (1.6-8.9); Platelet Count 157 K/mcL (140-400); Red Blood Count 3.47 M/mcL (3.82-4.97); Red Cell Distribution Width 17.7 % (11.5-14.5); Segmented Neutrophils % 55.6 %
[2018-02-15 05:22] LABS: Alanine Aminotransferase 3 Units/L (7-52); Albumin 2.9 g/dL (3.5-5.7); Albumin/Globulin Ratio 1.1 (1.1-2.2); Alkaline Phosphatase 43 Units/L (34-104); Aspartate Amino Transferase 11 Units/L (13-39); BUN/Creatinine Ratio 11 (6-26); Bilirubin,Total 0.4 mg/dL (0.3-1.0); Blood Urea Nitrogen 10 mg/dL (8-23); Calcium 8.6 mg/dL (8.6-10.3); Carbon Dioxide 31 mEq/L (23-29); Chloride 100 mEq/L (98-107); Globulin 2.7 g/dL (2.4-3.5); Glucose 100 mg/dL (70-105); Osmolality,Calculated 287 (280-300); Potassium 3.7 mEq/L (3.5-5.1); Sodium 139 mEq/L (136-145); Total Protein 5.6 g/dL (6.4-8.9); eGFR For Non-African Americans > 60 (> 60)
[2018-02-15] MEDS: *HR* HYDROcodone/Acet 5/325 mg TABLET PO PRN ×2 (08:37→17:26)
[2018-02-15] MEDS: Furosemide 20 MG/2 ML VIAL IVP SCH (08:37)
[2018-02-15] MEDS: Diltiazem CD (24hr) 180 MG CAPSULE PO SCH (08:38)
[2018-02-15] MEDS: Thiamine (B-1) 100 MG TABLET PO SCH (08:38)
[2018-02-15] MEDS: Apixaban 5 MG TABLET PO SCH ×2 (08:38→21:06)
[2018-02-15] MEDS: Vitamin B Complex/Vit C/Vit E 1 EACH TABLET PO SCH (08:38)
[2018-02-15] MEDS: Carbidopa/Levodopa 25/100 TABLET PO SCH ×3 (08:38→21:06)
[2018-02-15] MEDS: Isosorbide MONOnitrate (24 HR) 30 MG TAB.ER.24H PO SCH (08:38)
[2018-02-15] MEDS: Famotidine 20 MG TABLET PO SCH ×2 (08:38→21:06)
[2018-02-15] MEDS: Folic Acid 1 MG TABLET PO SCH (08:39)
--- NOTE | 2018-02-15 09:38 | Discharge Summary ---
- NOTES TO OUTPATIENT PROVIDER Notes to Outpatient Provider: NEW A-FIB, and CHF exacerbation. started on cardizem, IMDUR, Eliquis, and lasix at d/c. Please monitor renal function with new Rx lasix,. will need cardio follow-up Orders not resulted at time of discharge: Pending orders 02/16/18 04:00 Complete Blood Count [HEME] AM 0400 Comprehensive Metabolic Panel AM 0400 Date of Encounter: 02/15/18 Time of Encounter: 09:33 - Discharge Diagnosis (1) New onset atrial fibrillation Priority: Primary Status: Acute Assessment and Plan: Acute and new onset of atrial fibrillation. Pt. denies cardiac hx, or H/O Afib, or CHF small left pleural effusion and minimal atelectasis on CXR. TTE with mod-severe biatrial enlargement started on cardizem; HR improved initially; dose increased d/t recurrence a-fib with RVR with activity; also starting eliquis concerns for CHF on admission with a bnp of 345, dyspnea, orthopnea and BLE 1+ pitting edema; improved with lasix likely further exacerbated by a-fib HR improved overnight; ambulate this morning to evaluate for return of RVR and dyspnea with exertion (2) Peripheral edema Priority: Secondary Status: Resolved (3) Dyspnea Priority: Secondary Status: Acute Qualifiers: Dyspnea type: orthopnea Qualified Code(s): R06.01 - Orthopnea (4) GERD (gastroesophageal reflux disease) Priority: Secondary Status: Chronic Qualifiers: Esophagitis presence: esophagitis presence not specified Qualified Code(s): K21.9 - Gastro-esophageal reflux disease without esophagitis (5) CKD (chronic kidney disease) stage 3, GFR 30-59 ml/min Priority: Secondary Status: Chronic Assessment and Plan: renal function stable at d/c; Scr 0.88 (6) Alcohol abuse Priority: Secondary Status: Acute Assessment and Plan: ETOH abuse 2/2 pain; treating chronic back pain with ETOH family reporting 5-6 drinks daily discussed cessation will need f/u with pain management; web referral made at d/c no s/sx of ETOH withdrawal this am (7) CHF (congestive heart failure) Priority: Secondary Status: Resolved Assessment and Plan: Presented with orthopnea, and dyspnea on exertion as well as BLE edema treated with lasix and o2 swelling resolved, not dyspneic with rest; ambulate to assess for dyspena with exertion TTE obtained LVEF 60-65%. * Indeterminate diastolic function. * Mild concentric left ventricular hypertrophy. Right Ventricle * Normal right ventricular structure and function. Left Atrium * Moderately dilated left atrium. Right Atrium * Severely dilated right atrium. Interatrial Septum * No evidence of PFO by color Doppler. Moderate to severe tricuspid regurg mild pulmonary hypertension Continue oral lasix 10mg daily at D/C and Imdur at d/c Qualifiers: Heart failure type: unspecified Heart failure chronicity: acute Qualified Code(s): I50.9 - Heart failure, unspecified (8) History of seizures Priority: Secondary Status: Chronic (9) DVT prophylaxis Priority: Secondary Status: Acute Hospital course: Ms. Carrasquillo is a 82 year old female Discharge discussed with: patient, family, nurse - Time Spent with Patient Total time spent providing and/or coordinating discharge services: Less than 30 minutes - Discharge Medications Prescriptions: Apixaban [Eliquis] 5 mg PO BID 30 Days #60 tablet Diltiazem CD (24hr) [Cardizem CD] 180 mg PO DAILY 30 Days #30 cap.er.24h Isosorbide MONOnitrate (24 HR) [Imdur] 30 mg PO DAILY 30 Days #30 tab.er.24h Home Medications: Carbidopa/Levodopa [Carbidopa-Levodopa 25-100 Tab] 1 tab PO TID 02/11/18 [History] Citalopram Hydrobromide [Citalopram HBr] 20 mg PO DAILY 02/11/18 [History] Estrogens, Conjugated [Premarin] 1.25 mg PO DAILY 02/11/18 [History] Omeprazole [PriLOSEC] 40 mg PO DAILY 02/11/18 [History] traZODone [TraZODone] 50 mg PO HS PRN 02/11/18 [History] Apixaban [Eliquis] 5 mg PO BID 30 Days #60 tablet 02/15/18 [Rx] Diltiazem CD (24hr) [Cardizem CD] 180 mg PO DAILY 30 Days #30 cap.er.24h 02/15/18 [Rx] Isosorbide MONOnitrate (24 HR) [Imdur] 30 mg PO DAILY 30 Days #30 tab.er.24h 02/15/18 [Rx] Allergies/Adverse Reactions: Allergy/AdvReac Type Severity Reaction Status Date / Time ciprofloxacin [From Cipro] Allergy See Verified 02/11/18 12:22 Comments codeine Allergy Nausea Verified 02/11/18 12:22 latex Allergy Blister Verified 02/11/18 12:22 pantoprazole [From Protonix] Allergy Itching Verified 02/11/18 12:22 Sulfa (Sulfonamide Allergy Rash Verified 02/11/18 12:22 Antibiotics) Zolpidem [From Ambien] Allergy Hallucinati Verified 02/11/18 12:22 ng tramadol AdvReac Dizziness Verified 02/11/18 20:37 Date of admission: 02/11/18 15:31 Primary care physician: Saúl Ballard MD Consults: 02/11/18 14:42 Consult to Cardiology [CONS] Stat Comment: Consulting Provider: Cardiology [place] Reason for Consult: new onset atrial fib Call Completed: No 02/11/18 15:43 Consult to Superintendent Track [CONS] Routine Reason for SW Consult: Please assess patient for possible home needs ([place]. O2) for post-discharge planning. 02/13/18 10:13 Consult to Physical Therapy [CONS] Routine Comment: Evaluate, develop and implement POC Reason for Consult: discharge planning Does patient have active BEDREST order?: No Is patient medically & hemodynamically stable?: Yes Discharging clinician: Dany Coyne Anticipated date of discharge: 02/15/18 - Constitutional Vitals: Temp Pulse Resp BP Pulse Ox 97.4 F L 92 16 127/86 98 02/15/18 07:12 02/15/18 07:12 02/15/18 07:12 02/15/18 07:12 02/15/18 07:12 General appearance: Present: cooperative, A&O X 3, pleasant, answers questions appropriately - Head Head exam: Present: atraumatic, normocephalic - Eye Eye exam: Present: PERRL, conjuntiva pink, sclera anicteric Pupils: Present: PERRL - Neck Neck exam general surgery: Present: supple, trachea midline. Absent: lymphadenopathy - Respiratory Respiratory exam: Present: CTAB. Absent: accessory muscle use, decreased breath sounds, prolonged expiratory phase, rales, respiratory distress, rhonchi, wheezes, tachypnea - Cardiovascular Cardiovascular exam: Present: irregular rhythm. Absent: diastolic murmur, gallop, rubs, systolic murmur - GI/Abdominal GI/Abdominal exam: Present: normal bowel sounds, soft, no peritoneal signs. Absent: distended, tenderness - Extremities Exam Extremities exam: Present: normal capillary refill, normal inspection, warm, radial pulses palpable and symmetrical. Absent: calf tenderness, cyanotic, pedal edema, tenderness - Neurological Exam Neurological exam: Present: alert, CN II-XII intact, oriented X3, no focal deficits. Absent: pronater drift, facial droop, speech deficit - Skin Skin exam: Present: dry, intact - Patient Status Disposition: Home, Self-Care Condition: Good Functional capacity at discharge: uses cane/walker Overall status at discharge: patient is progressing back to baseline - Discharge Instructions Follow Up With: Saúl Ballard MD [Primary Care Provider] - 02/18/18 9:45 am - Diet and Activity Activity: increase activity as tolerated, resume usual activities as tolerated Diet: diabetic diet, low fat, low cholesterol, low salt diet
[2018-02-15] MEDS: Clotrimazole Vag CRM 45 GM TUBE VG SCH ×4 (10:03→21:06)
--- NOTE | 2018-02-15 12:29 | Internal Med Progress Note ---
Hospitalist Progress Note - Encounter Date of Encounter: 02/15/18 Time of Encounter: 12:26 - Subjective Interval History: Continues to have dyspnea with exertion as well as A. fib with RVR. Patient ambulating around the unit this morning and SPO2 dropped to 88%, heart rate increased to 130s. Continue to monitor and transfer to [facility]. - Exam Vitals: Temp Pulse Resp BP Pulse Ox 98.0 F 93 16 121/73 92 02/15/18 11:14 02/15/18 11:14 02/15/18 11:14 02/15/18 11:14 02/15/18 11:14 Exam: General: Conversant, No Apparent Distress HEENT: Atraumatic, Normocephaly, Mucus Membranes Moist Neck: No JVD, Normal carotid pulses Cardiac: No Murmur, irregularly irregular rhythm Lungs: Normal Breath Sounds, No Wheeze, Rales, Rhonchi Neuro: Alert and responsive, No focal deficits noted Abdomen: Soft, Non-Tender Skin: Warm dry and intact without rashes or lesions noted Musculoskeletal: No Chest Wall Tenderness Extremities: No Clubbing, No Cyanosis, Normal Pulses, 1+ pitting edema - Assessment and Plan (1) New onset atrial fibrillation Current Visit: Yes Status: Acute Assessment and Plan: New onset A. fib Has had cardiology consult throughout the day, has now signed off Placed on Cardizem drip, heart rate improved Cardiology started oral Cardizem; dose increased due to increase in heart rate yesterday afternoon Continues to have A. fib RVR and dyspnea with ambulation; increasing Cardizem dose Continue to closely monitor on telemetry Continue oral anticoagulation (2) Peripheral edema Current Visit: Yes Status: Resolved Assessment and Plan: Acute and new bilateral pedal edema of LEs. 1+ pitting. Pt. denies use of lasix or hx/dx of CHF. 20 mg IVP lasix ONCE. Will add BID dosing once Echocardiogram is completed if results warrant. 1/5L fluid restriction. BNP ordered. Monitor I&O and daily weight. 02/12 We will continue with Lasix IV daily and closely monitor and creatinine 02/13 Improving we will continue with Lasix for now 02/14 Improving creatinine stable cont with lasix - may switch to oral tomorrow 02/15--continuing to improve, change Lasix to oral (3) Dyspnea Current Visit: Yes Status: Acute Assessment and Plan: Pt. reports SOB/dypsnea for the past three weeks that has been worsening, ort hopnea, increased weight gain, and bilateral pedal edema. Denies home O2 use. Supplemental O2 w/titration and SpO2 monitoring. 20 mg IVP ONCE of lasix and monitor I&O. 1.5L daily fluid restriction. 02/12 Secondary to CHF exacerbation continue with IV Lasix monitor intake and output fluid restriction at 1.5 L daily 02/13 Secondary to CHF exacerbation continue with Lasix encouraged patient to ambulate currently off oxygen on room air monitor SPO2 02/14 cont to have SOB on exertion and rapid HR- afib- sats are stable -we will increase cardizem to 180 and see if improve HR breathing 02/15--dyspnea with exertion persists as well as A. fib RVR with exertion. SPO2 88% while walking in the [place] this morning. Increase Cardizem dose has A. fib with RVR likely contributing to dyspnea. Continue Lasix for further diuresis. Qualified for home O2; discussed case with nurse navigator & nursing staff (4) GERD (gastroesophageal reflux disease) Current Visit: Yes Status: Chronic Assessment and Plan: Hx of chronic GERD. Continue Prilosec (5) CKD (chronic kidney disease) stage 3, GFR 30-59 ml/min Current Visit: Yes Status: Chronic Assessment and Plan: History of CKD III Renal function stable Avoid nephrotoxins and continue to closely monitor (6) Alcohol abuse Current Visit: Yes Status: Acute Assessment and Plan: Discussed cessation of alcohol abuse Patient's family reports that she drinks approximately 5-6 alcoholic beverages daily The patient reports she does not use due to chronic back pain Continue serial protocol No S/SX of withdrawal (7) CHF (congestive heart failure) Current Visit: Yes Status: Resolved Assessment and Plan: Presented with orthopnea, dyspnea on exertion, bilateral lower extremity 2+ pitting edema She has been treated with IV diuretics and has improved Bilateral lower extremity pitting edema continuing to improve However, patient continues to have dyspnea worse with exertion, A. fib RVR and hypoxia with exertion TTE with the following findings-- LVEF 60-65%. * Indeterminate diastolic function. * Mild concentric left ventricular hypertrophy. Right Ventricle * Normal right ventricular structure and function. Left Atrium * Moderately dilated left atrium. Right Atrium * Severely dilated right atrium. Interatrial Septum * No evidence of PFO by color Doppler. Moderate to severe tricuspid regurg mild pulmonary hypertension Qualified for home O2, continue O2 for respiratory support as needed, continue Lasix 1 g daily, continue daily weight and monitor I's and O's (8) History of seizures Current Visit: Yes Status: Chronic Assessment and Plan: Hx of seizures. Last reported seizure was two years ago. Continue pts. Carbidopa levodopa. 02/12 Patient has a history of seizures, no seizure activity noted at this time we will continue seizure precautions 02/13 No seizure activity noted at this time continue seizure precautions 02/14 no seizure activity cont with seizure precautions 02/15-no seizure-like activity, continue seizure precautions (9) DVT prophylaxis Current Visit: Yes Status: Acute Assessment and Plan: Continue oral anticoagulant - Time Spent with Patient Total time spent is greater than 50% in coordination of care (as documented) at patient's floor/unit and/or counseling patient: less than 15 minutes Plan of Care Discussed with: patient Internal Medicine: Result - Labs CBC & Chem 7: 02/15/18 04:11 02/15/18 04:11 Labs: Short CBC 02/15/18 Range/Units 04:11 WBC 6.5 (4.3-11.1) K/mcL Hgb 9.3 L (11.5-15.4) g/dL Hct 30.5 L (35.3-44.9) % Plt Count 157 (140-400) K/mcL Neutrophils # 3.6 (1.6-8.9) K/mcL BMP 02/15/18 04:11 Sodium 139 Potassium 3.7 Chloride 100 Carbon Dioxide 31 H BUN 10 Creatinine 0.88 Glucose 100 Calcium 8.6 Liver Function 02/15/18 Range/Units 04:11 Total Bilirubin 0.4 (0.3-1.0) mg/dL AST 11 L (13-39) Units/L ALT 3 L (7-52) Units/L Alkaline Phosphatase 43 (34-104) Units/L Albumin 2.9 L (3.5-5.7) g/dL - ABG Interpretation ABG results: PT/INR, D-dimer PT 11.9 Seconds (9.4-12.1) 02/11/18 14:44 Consult Discharge Plan - Plan Referrals: Saúl Ballard MD [Primary Care Provider] - 02/18/18 9:45 am Prescriptions: Apixaban [Eliquis] 5 mg PO BID 30 Days #60 tablet Diltiazem CD (24hr) [Cardizem CD] 180 mg PO DAILY 30 Days #30 cap.er.24h Furosemide [Lasix] 10 mg PO DAILY 30 Days #15 tablet Isosorbide MONOnitrate (24 HR) [Imdur] 30 mg PO DAILY 30 Days #30 tab.er.24h (3) Dyspnea Qualifiers: Dyspnea type: orthopnea Qualified Code(s): R06.01 - Orthopnea (4) GERD (gastroesophageal reflux disease) Qualifiers: Esophagitis presence: esophagitis presence not specified Qualified Code(s): K21.9 - Gastro-esophageal reflux disease without esophagitis (7) CHF (congestive heart failure) Qualifiers: Heart failure type: unspecified Heart failure chronicity: acute Qualified Code(s): I50.9 - Heart failure, unspecified
[2018-02-15] MEDS ORDERED: Diltiazem SR (12hr) 60 MG CAPSULE PO ONE (13:51)
[2018-02-16] MEDS: *HR* HYDROcodone/Acet 5/325 mg TABLET PO PRN ×2 (03:59→20:40)
[2018-02-16 04:58] LABS: Basophils # 0.1 K/mcL (0.0-0.2); Eosinophils # 0.1 K/mcL (0.0-0.6); Eosinophils % 1.6 %; Hematocrit 29.6 % (35.3-44.9); Hemoglobin 9.3 g/dL (11.5-15.4); Immature Granulocytes % 0.3 % (0-4); Lymphocytes # 1.5 K/mcL (0.6-4.6); Lymphocytes % 20.7 %; Mean Corpuscular HGB Conc 31.4 g/dL (31.6-35.5); Mean Corpuscular Hemoglobin 27.2 pg (28.0-33.3); Mean Corpuscular Volume 86.5 fL (83.0-100.0); Mean Platelet Volume 12.8 fL (9.4-12.4); Monocytes # 0.7 K/mcL (0.0-1.3); Monocytes % 9.3 %; Neutrophils # 4.7 K/mcL (1.6-8.9); Platelet Count 142 K/mcL (140-400); Red Blood Count 3.42 M/mcL (3.82-4.97); Segmented Neutrophils % 67.1 %
[2018-02-16 05:16] LABS: Alanine Aminotransferase < 3 Units/L (7-52); Albumin 2.9 g/dL (3.5-5.7); Albumin/Globulin Ratio 1.1 (1.1-2.2); Alkaline Phosphatase 43 Units/L (34-104); Aspartate Amino Transferase 15 Units/L (13-39); BUN/Creatinine Ratio 12 (6-26); Bilirubin,Total 0.5 mg/dL (0.3-1.0); Blood Urea Nitrogen 10 mg/dL (8-23); Calcium 8.7 mg/dL (8.6-10.3); Carbon Dioxide 30 mEq/L (23-29); Chloride 99 mEq/L (98-107); Globulin 2.7 g/dL (2.4-3.5); Glucose 97 mg/dL (70-105); Osmolality,Calculated 283 (280-300); Potassium 3.6 mEq/L (3.5-5.1); Sodium 137 mEq/L (136-145); Total Protein 5.6 g/dL (6.4-8.9); eGFR For Non-African Americans > 60 (> 60)
[2018-02-16] MEDS: Carbidopa/Levodopa 25/100 TABLET PO SCH ×3 (08:20→20:41)
[2018-02-16] MEDS: Thiamine (B-1) 100 MG TABLET PO SCH (08:20)
[2018-02-16] MEDS: Diltiazem CD (24hr) 240 MG CAPSULE PO SCH (08:20)
[2018-02-16] MEDS: Vitamin B Complex/Vit C/Vit E 1 EACH TABLET PO SCH (08:20)
[2018-02-16] MEDS: Furosemide 20 MG/2 ML VIAL IVP SCH (08:20)
[2018-02-16] MEDS: Famotidine 20 MG TABLET PO SCH ×2 (08:28→20:41)
[2018-02-16] MEDS: Folic Acid 1 MG TABLET PO SCH (08:28)
[2018-02-16] MEDS: Apixaban 5 MG TABLET PO SCH ×2 (08:28→20:41)
[2018-02-16] MEDS: Clotrimazole Vag CRM 45 GM TUBE VG SCH ×4 (08:29→21:05)
[2018-02-16] MEDS: Isosorbide MONOnitrate (24 HR) 30 MG TAB.ER.24H PO SCH (08:29)
--- NOTE | 2018-02-16 08:42 | Internal Med Progress Note ---
<Julia Oglesby - Last Filed: 02/16/18 15:18> Hospitalist Progress Note - Exam Vitals: Temp Pulse Resp BP Pulse Ox 98.0 F 82 19 111/79 99 02/16/18 10:55 02/16/18 10:55 02/16/18 10:55 02/16/18 10:55 02/16/18 10:55 - Assessment and Plan (1) New onset atrial fibrillation Current Visit: Yes Status: Acute (2) Peripheral edema Current Visit: Yes Status: Resolved (3) Dyspnea Current Visit: Yes Status: Acute (4) GERD (gastroesophageal reflux disease) Current Visit: Yes Status: Chronic (5) DVT prophylaxis Current Visit: Yes Status: Acute (6) History of seizures Current Visit: Yes Status: Chronic (7) CKD (chronic kidney disease) stage 3, GFR 30-59 ml/min Current Visit: Yes Status: Chronic (8) Alcohol abuse Current Visit: Yes Status: Acute (9) CHF (congestive heart failure) Current Visit: Yes Status: Resolved - Time Spent with Patient Total time spent is greater than 50% in coordination of care (as documented) at patient's floor/unit and/or counseling patient: Internal Medicine: Result - Labs CBC & Chem 7: 02/16/18 03:40 02/16/18 03:40 Labs: Short CBC 02/16/18 Range/Units 03:40 WBC 7.0 (4.3-11.1) K/mcL Hgb 9.3 L (11.5-15.4) g/dL Hct 29.6 L (35.3-44.9) % Plt Count 142 (140-400) K/mcL Neutrophils # 4.7 (1.6-8.9) K/mcL BMP 02/16/18 03:40 Sodium 137 Potassium 3.6 Chloride 99 Carbon Dioxide 30 H BUN 10 Creatinine 0.81 Glucose 97 Calcium 8.7 Liver Function 02/16/18 Range/Units 03:40 Total Bilirubin 0.5 (0.3-1.0) mg/dL AST 15 (13-39) Units/L ALT < 3 L (7-52) Units/L Alkaline Phosphatase 43 (34-104) Units/L Albumin 2.9 L (3.5-5.7) g/dL - ABG Interpretation ABG results: PT/INR, D-dimer PT 11.9 Seconds (9.4-12.1) 02/11/18 14:44 - Impressions Impressions Head CT 02/16/18 11:44 IMPRESSION: No acute intracranial abnormality. D/ / Stoney Arshad / Stoney Arshad Interpreting Provider: Stoney Arshad Consult Discharge Plan - Plan Referrals: Saúl Ballard MD [Primary Care Provider] - 02/18/18 9:45 am Prescriptions: Apixaban [Eliquis] 5 mg PO BID 30 Days #60 tablet Diltiazem CD (24hr) [Cardizem CD] 180 mg PO DAILY 30 Days #30 cap.er.24h Furosemide [Lasix] 10 mg PO DAILY 30 Days #15 tablet Isosorbide MONOnitrate (24 HR) [Imdur] 30 mg PO DAILY 30 Days #30 tab.er.24h - Attending Attestation I examined this patient and my medical decision-making was reviewed with the Resident Physician Dr Dejesus. I agree with the documented findings, disposition and treatment plan as described except to the extent set forth below/addl details below Ms Carrasquillo was admitted with new Afib RVR and diastolic CHF. She was on the obs unit and ready for dc to home when she was noted to have elevated heart rate with ambulation and oxygen sat that dropped to 88%. DC was held and she was transferred to [facility] for further monitoring. Our team has assumed care today. She cont to have HR elevation with exertion and develops headache with HR elevation. awake, daughter at bedside. no palpitations, presyncope, chest pain. With ambulation yesterday lightheaded and headache which coincided with HR elevation. Further discussed khan in detail with pt and her daughter. This khan at first she says is constant, then says with exertion only. Also told resident she hadn't had khan prior. But to me she admits to chronic frequent khan and daughter confirms this to be true. She feels this khan is more intense when it comes on, tightness in head, top or head and some back of head. no nausea, emesis, vision changes. S he at no time previously had any neuro deficits associated with it and none at all this admission. no numbness, tingling, weakness, paralsis, vision changes, speech changes, stiff neck or neck pain. No fevers or chills. Her daughter notes that she has an upcoming neuro appt with her neurologist and they plan to discuss headaches further at that time. In regards to her hr elevation with exertion, med dose of cardizem increased today and will be following hr, bp and ambulate pt with rn. She is currently well appearing and has no complaints. She is a chronic beer drinker nightly for 52 years to help with sleep, she was educated on need for cessation as etoh can cause cardiomyopathy and w/d can cause arrhythmias. Last drink 5-6 days ago, no s/s of withdrawal. She had recent UTI, completed outpt oral abx course and had resolution of symptoms. gen- alert, awake,appears stated age eyes- pupils equal round , eom intact and painless cv- reg rate and irreg/irreg rhythm, normal s1,s2, no murmurs appreciated, no le edema, no jvd lungs- ctabl, no wheezing, rhonchi or crackles, normal resp effort on o2 nc abd- soft, non tender, non distended, + bs neuro- AAOx3, CN grossly intact, no focal deficits, no dysarthria or aphasia New onset Afib with RVR, now rate controlled Afib with exertion of HR elevation into 120s routinely with exertion -cardizem dose uptitrated, on oral AC -checked mag and repleted IV today, oral kcl to keep K >4, tsh wnl, no signs/symptoms of infection at this time (recent UTI, completed abx course, pt ua reviewed, she is denying any symptoms of UTI) -on further chart review cardiology did follow her this admission, given failure to improve today with up titrated dosing I have discussed with GISELE Marie and cardiology consult again ordered and they will see her to provide addl input tomorrow -on chart review i do not see mention of need for ischemic work up, no trops that i can find in [employer], EKG showed afib without ischemic changes and echo reviewed -she also had bl le us which was negative for dvt, given hypoxia, tachycardia will check dimer, if elevated will need to get CTA to rule out PE , has been on Eliquis -she is not displaying s/s of etoh withdrawal and tachycardia is not likely from this -if everything is negative this may simply be related to need for improved rate control and deconditioning Acute Diastolic CHF, new dx Echo with EF 60-65%, mild lvh, indeterminant diastolic dysfunciton, Moderate to severe tricuspid regurg, mild pulmonary hypertension, dilated right and left atria -cards followed, s/p diuresis, now oral lasix, improved edema, home o2 on dc is set up -no ischemic work up was required/preformed this admission, we will have to confirm with cards outpt dc recs/follow up regarding need for ischemic work up Hypmagnesemia- iv repletion today Chronic Headaches, acute flare, exacerbated by tachycardia- this is not c/w cva/tia at this time, neuro exam is normal, CT head neg for acute findings, may be symptom of tachycardia for her. will cont to monitor, she does have outpt neurology follow up already scheduled for within 2 weeks <Angel Dejesus - Last Filed: 02/16/18 19:41> Hospitalist Progress Note - Encounter Date of Encounter: 02/16/18 Time of Encounter: 09:45 - Subjective Interval History: Ms. Carrasquillo is a 82 y.o female with past medical history of hypertension (not on any hypertensives), alcohol abuse, GERD, CKD Stage III, bowel/ bladder incontinence status post stimulation implant came to the ED because of ORTEGA, orthopnea, PND, and dry cough for the past few days. Patient also endorsed that she had an episode of UTI before admission to the hospital and completed her course of antibiotics. Patient does not have a known diagnosis of CHF although she has a Hx of taking 10mg PO Lasix which as i understand is for her per ipheral edema which she says has resolved. During this hospital stay, her most recent echo showed diastolic dysfunction, Pulmonary HTN , with bilateral atrial enlargement, and a new onset atrial fibrillation. Patient is currently on day 5 of her hospital stay, she was scheduled to get discharged yesterday but everytime she ambulates she goes into RVR. Her rate was initially controlled on Cardizem 60mg PO, which had to be increased to 120 PO and then 180 PO Cardizem. She was having difficulty time keeping her heart rate down on ambulation . Today patient is on 240 PO Cardizem, continues to be on Afib but rate control on 96 bpm . The patient at the bedside today. She endorses no acute distress except for generalized headache that she endorses happens when she ambulates. Ordered a head CT on her which was negative for any hemorrhage, intracranial mass or abnormalities. She endorses generalized KHAN especially when she ambulates from the bed. - Exam Vitals: Temp Pulse Resp BP Pulse Ox 97.6 F 88 18 102/68 99 02/16/18 06:57 02/16/18 06:57 02/16/18 06:57 02/16/18 06:57 02/16/18 06:57 Exam: General: Conversant, No Apparent Distress HEENT: Atraumatic, Normocephaly, Mucus Membranes Moist Neck: No JVD, Normal carotid pulses Cardiac: No Murmur, irregularly irregular rhythm Lungs: Normal Breath Sounds, No Wheeze, Rales, Rhonchi Neuro: Alert and responsive, No focal deficits noted Abdomen: Soft, Non-Tender Skin: Warm dry and intact without rashes or lesions noted Musculoskeletal: No Chest Wall Tenderness Extremities: No Clubbing, No Cyanosis, Normal Pulses, 1+ pitting edema - Assessment and Plan (1) New onset atrial fibrillation Current Visit: Yes Status: Acute Assessment and Plan: - Likely multifactorial due to her newly diagnosed congestive heart failure, in conjunction with bilateral atrial enlargement, and evidence of Pulmonary Venous Hypertension as 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 Also had large amount of leukocyte esterase in her UA when she came in which can potentially be a contributing factor which can trigger atrial fibrillation, although she denies any dysuria or suprapubic pain. - CHADVasc Score: 4 . Denies ever taking aspirin before or being on any blood thinners ever. - In ED during this admission she was on Cardizem drip and on heparin , currently she is on a high dose of PO Cardizem (240mg) for rate control + Eliquis for AC - Was in A. fib when I met her, however she was in A. fib RVR with ambulation yesterday. -Replenished her potassium for a goal of 4.0. Was also hypomagnesemic this morning and give her some magnesium sulfate 2gm. - continue to monitor her hemodynamic status. We are going to repeat the 6 minute walk test on her to see how her heart rate does on ambulation. (2) CHF (congestive heart failure) Current Visit: Yes Status: Resolved Assessment and Plan: - Likely due to history of CHF. Also recent echocardiogram showed diastolic dysfunction with evidence of b/l enlargement of the atria. and Pulm HTN (Likely Grade II) -Presented with orthopnea, dyspnea on exertion, bilateral lower extremity 2+ pitting leobardo - On exam today she did not appear to be markedly edematous to me. - She has been getting 20 mg Lasix for her peripheral edema until yesterday. - Fluid Restriction to less than 1.5 L a day. Close watch on Is/Os and Daily weight. Cardiac Diet, (3) Peripheral edema Current Visit: Yes Status: Resolved Assessment and Plan: - Likely due to history of CHF. Also recent echocardiogram showed diastolic dysfunction with evidence of b/l enlargement of the atria. -Presented with orthopnea, dyspnea on exertion, bilateral lower extremity 2+ pitting leobardo - On exam today she did not appear to be markedly edematous to me. - She has been getting 20 mg Lasix for her peripheral edema until yesterday. - Fluid Restriction to less than 1.5 L a day. Close watch on Is/Os and Daily weight. Cardiac Diet, (4) Headache Current Visit: Yes Status: Acute Assessment and Plan: - Endorses that she has a Hx of sinus headache. However this headache that she has been endorsing for the past few days is more generalized and says that it happens to her when she ambulates. Head CT was negative for hemorrhage/ intracranial masses/ Infarcts . Does not appear to be dehydrated. Does not endorse any photophobia or phonophobia. No Hx of any auras. -Tylenol PRN, or neurology consult if headache gets out of proportion. (5) Dyspnea Current Visit: Yes Status: Acute Assessment and Plan: - Likely due to her newly diagnosed diastolic dysfunction with evidence of pulmonary hypertension on echocardiogram,that is causing extensive strain on her heart causing her to be in atrial fibrillation with RVR. - Patient as been endorsing dyspnea for the past 3 weeks history on exertion along with orthopnea , PND. She also had dry cough that has had worsened with a past 3 weeks. They will exam until yesterday she was edematous as well. - The dyspnea is better when she is on bed but worsens when she ambulates. 2 L of nasal cannula satting at 99%. (6) GERD (gastroesophageal reflux disease) Current Visit: Yes Status: Chronic Assessment and Plan: Hx of chronic GERD. Continue Prilosec (7) DVT prophylaxis Current Visit: Yes Status: Acute (8) History of seizures Current Visit: Yes Status: Chronic Assessment and Plan: - Has a history of seizures in the last episode was 2 years ago. -During this hospital stay she has had no seizure activity. (9) CKD (chronic kidney disease) stage 3, GFR 30-59 ml/min Current Visit: Yes Status: Chronic Assessment and Plan: History of CKD III, Kidney electrolytes seemed to be at the baseline. Avoid nephrotoxins and continue to closely monitor. (10) Alcohol abuse Current Visit: Yes Status: Acute Assessment and Plan: Discussed cessation of alcohol abuse Patient's family reports that she drinks approximately 5-6 alcoholic beverages daily The patient reports she does not use due to chronic back pain No withdrawal symptoms . - Time Spent with Patient Total time spent is greater than 50% in coordination of care (as documented) at patient's floor/unit and/or counseling patient: Internal Medicine: Result - Labs CBC & Chem 7: 02/16/18 03:40 02/16/18 03:40 Labs: Short CBC 02/16/18 Range/Units 03:40 WBC 7.0 (4.3-11.1) K/mcL Hgb 9.3 L (11.5-15.4) g/dL Hct 29.6 L (35.3-44.9) % Plt Count 142 (140-400) K/mcL Neutrophils # 4.7 (1.6-8.9) K/mcL BMP 02/16/18 03:40 Sodium 137 Potassium 3.6 Chloride 99 Carbon Dioxide 30 H BUN 10 Creatinine 0.81 Glucose 97 Calcium 8.7 Liver Function 02/16/18 Range/Units 03:40 Total Bilirubin 0.5 (0.3-1.0) mg/dL AST 15 (13-39) Units/L ALT < 3 L (7-52) Units/L Alkaline Phosphatase 43 (34-104) Units/L Albumin 2.9 L (3.5-5.7) g/dL - ABG Interpretation ABG results: PT/INR, D-dimer PT 11.9 Seconds (9.4-12.1) 02/11/18 14:44 <Julia Oglesby - Last Filed: 02/16/18 15:18> (3) Dyspnea Qualifiers: Dyspnea type: orthopnea Qualified Code(s): R06.01 - Orthopnea (4) GERD (gastroesophageal reflux disease) Qualifiers: Esophagitis presence: esophagitis presence not specified Qualified Code(s): K21.9 - Gastro-esophageal reflux disease without esophagitis (9) CHF (congestive heart failure) Qualifiers: Heart failure type: unspecified Heart failure chronicity: acute Qualified Code(s): I50.9 - Heart failure, unspecified <Angel Dejesus - Last Filed: 02/16/18 19:41> (2) CHF (congestive heart failure) Qualifiers: Heart failure type: unspecified Heart failure chronicity: acute Qualified Code(s): I50.9 - Heart failure, unspecified (5) Dyspnea Qualifiers: Dyspnea type: orthopnea Qualified Code(s): R06.01 - Orthopnea (6) GERD (gastroesophageal reflux disease) Qualifiers: Esophagitis presence: esophagitis presence not specified Qualified Code(s): K21.9 - Gastro-esophageal reflux disease without esophagitis
[2018-02-16 10:30] LABS: Magnesium 1.4 mg/dL (1.6-2.6)
[2018-02-16 10:33] LABS: Thyroid Stimulating Hormone 2.208 mcIU/mL (0.340-5.600)
[2018-02-16] MEDS: Furosemide 20 MG TABLET PO SCH (12:01)
[2018-02-16] MEDS: Acetaminophen 325 MG TABLET PO PRN (15:18)
[2018-02-17 05:59] LABS: Hematocrit 30.8 % (35.3-44.9); Hemoglobin 9.6 g/dL (11.5-15.4); Mean Corpuscular HGB Conc 31.2 g/dL (31.6-35.5); Mean Corpuscular Hemoglobin 26.9 pg (28.0-33.3); Mean Corpuscular Volume 86.3 fL (83.0-100.0); Mean Platelet Volume 12.5 fL (9.4-12.4); Platelet Count 146 K/mcL (140-400); Red Blood Count 3.57 M/mcL (3.82-4.97); Red Cell Distribution Width 17.7 % (11.5-14.5)
[2018-02-17 06:18] LABS: BUN/Creatinine Ratio 12 (6-26); Blood Urea Nitrogen 11 mg/dL (8-23); Calcium 8.8 mg/dL (8.6-10.3); Carbon Dioxide 31 mEq/L (23-29); Chloride 99 mEq/L (98-107); Glucose 105 mg/dL (70-105); Magnesium 1.8 mg/dL (1.6-2.6); Osmolality,Calculated 284 (280-300); Potassium 3.9 mEq/L (3.5-5.1); Sodium 137 mEq/L (136-145); eGFR For Non-African Americans 57 (> 60)
[2018-02-17] MEDS: *HR* HYDROcodone/Acet 5/325 mg TABLET PO PRN ×2 (07:56→15:48)
[2018-02-17] MEDS: Isosorbide MONOnitrate (24 HR) 30 MG TAB.ER.24H PO SCH (07:57)
[2018-02-17] MEDS: Thiamine (B-1) 100 MG TABLET PO SCH (07:57)
[2018-02-17] MEDS: Furosemide 20 MG TABLET PO SCH ×2 (07:57→17:52)
[2018-02-17] MEDS: Carbidopa/Levodopa 25/100 TABLET PO SCH ×3 (07:57→21:22)
[2018-02-17] MEDS: Diltiazem CD (24hr) 240 MG CAPSULE PO SCH (07:58)
[2018-02-17] MEDS: Folic Acid 1 MG TABLET PO SCH (07:58)
[2018-02-17] MEDS: Vitamin B Complex/Vit C/Vit E 1 EACH TABLET PO SCH (07:58)
[2018-02-17] MEDS: Apixaban 5 MG TABLET PO SCH ×2 (07:58→21:22)
[2018-02-17] MEDS: Famotidine 20 MG TABLET PO SCH (07:59)
[2018-02-17] MEDS: Clotrimazole Vag CRM 45 GM TUBE VG SCH ×3 (09:30→21:43)
--- NOTE | 2018-02-17 11:19 | Cardiology Progress Note ---
<Albaro Wilson T - Last Filed: 02/17/18 11:25> Date of Encounter: 02/17/18 Time of Encounter: 11:17 Assessment and Plan (1) New onset atrial fibrillation Current Visit: Yes Status: Acute 82 YO F with new onset afib given cardizem experiencing increasing SOB and palpitations with exertion. Recommend further diuresis with lasix with the goal of SaO2 of 90% when walking down hallway. Will follow up with patient tomorrow to see how she responds. Discussion w patient/family: The assessment and plan as outlined above was discussed with the patient and/or family members who expressed understanding and agreement. All questions were answered. Thank you for involving us in the care of your patient. Please call with any questions. Subjective Principal diagnosis: afib Interval history: Patient with new onset Afib on cardizem being consulted for worsening afib symptoms. Patient states at rest there are no symptoms, but when she exerts herself such as walking down hallway, she experiences increasing chest palpitations and SOB. Objective Vital Signs, Last 4 Hours Temp Pulse Resp BP Pulse Ox 02/17/18 11:07 98.5 F 90 112/77 97 02/17/18 08:03 96 02/17/18 08:00 98.0 F 71 17 123/87 96 General: Conversant, No Apparent Distress HEENT: Atraumatic, Normocephaly Cardiac: Normal S1 and S2, Other (Irregular rhythm noted) Lungs: Normal Breath Sounds, Other (Right lower lung had minor rales.) Neuro: Alert and responsive, No focal deficits noted Abdomen: Soft, Non-Tender Skin: No rashes noted on visualized skin Musculoskeletal: No Chest Wall Tenderness Extremities: Normal Pulses Other: Had patient walk down hallway with pulse ox, Sa02 85% HR 120 Results 02/17/18 05:31 02/17/18 05:31 Lab Results 02/16/18 02/17/18 02/17/18 15:53 05:31 05:31 WBC 6.9 Hgb 9.6 L Hct 30.8 L Plt Count 146 D-Dimer 425 Sodium 137 Potassium 3.9 Chloride 99 Carbon Dioxide 31 H BUN 11 Creatinine 0.94 Glucose 105 Calcium 8.8 Magnesium 1.8 Consult Discharge Plan - Plan Referrals: Saúl Ballard MD [Primary Care Provider] - 02/18/18 9:45 am Prescriptions: Apixaban [Eliquis] 5 mg PO BID 30 Days #60 tablet Diltiazem CD (24hr) [Cardizem CD] 180 mg PO DAILY 30 Days #30 cap.er.24h Furosemide [Lasix] 10 mg PO DAILY 30 Days #15 tablet Isosorbide MONOnitrate (24 HR) [Imdur] 30 mg PO DAILY 30 Days #30 tab.er.24h <Simi Singh - Last Filed: 02/17/18 12:21> Date of Encounter: 02/17/18 Assessment and Plan Discussion w patient/family: The assessment and plan as outlined above was discussed with the patient and/or family members who expressed understanding and agreement. All questions were answered. Thank you for involving us in the care of your patient. Please call with any questions. Objective Vital Signs, Last 4 Hours Temp Pulse BP Pulse Ox 02/17/18 11:07 98.5 F 90 112/77 97 Results 02/17/18 05:31 02/17/18 05:31 Lab Results 02/16/18 02/17/18 02/17/18 15:53 05:31 05:31 WBC 6.9 Hgb 9.6 L Hct 30.8 L Plt Count 146 D-Dimer 425 Sodium 137 Potassium 3.9 Chloride 99 Carbon Dioxide 31 H BUN 11 Creatinine 0.94 Glucose 105 Calcium 8.8 Magnesium 1.8 - Attending Attestation Patient was seen and evaluated independently by me. Findings, assessment and plan were discussed in detail with patient, questions answered. Agree with nurse practitioner's/resident's documentation. Addition as follows, HR up to 100-120s with mild dyspnea when walking around, no symptoms at rest with VR 70s-80s. On cardizem 240 and eliquis HDD, minimal bibasilar fine crackles. Mild B/L LE edema to lower shins. Cr nl EF preserved. A: Afib, rate ctr ok at rest HFpEF, mild fluid overload mild MR, mod TR P: lasix 20 bid, walk pt around goal walking SpO2>90%, then d/c home with prn based on dyspnea and WT c/w cardizem CD 240 and eliquis f/u Cardiology clinic Simi Singh MD, PhD
--- NOTE | 2018-02-17 13:19 | Internal Med Progress Note ---
<Nathanael Matias - Last Filed: 02/17/18 13:23> Hospitalist Progress Note - Encounter Date of Encounter: 02/17/18 Time of Encounter: 08:00 - Subjective Interval History: Sitting comfortably in bed. She states she is feeling better today. Has episodes when standing of increased HR, dizzy, blurry vision. Is fine when sitting. She denies chest pain, palpitations, sob, diaphoresis, feeling like will pass out or syncope. - Exam Vitals: Temp Pulse Resp BP Pulse Ox 98.5 F 90 17 112/77 97 02/17/18 11:07 02/17/18 11:07 02/17/18 08:00 02/17/18 11:07 02/17/18 11:07 Exam: General: Alert, no acute distress or signs toxicity HEENT: Atraumatic/normocephalic, EOMI, PERRL, moist mucous embranes Neck: Supple, full ROM, no lymphadenopathy Cardiac: Regular rate, irregularly irregular rhythm, S1/S2+, no murmur, heaves, thrills, appreciated. Radial pulses 2+ bilat, no edema Lungs: Normal resp effort, good air movement, CTAB, no wheezes, rhonchi, rales appreciated. Abdomen: Soft nontender, nondistended, no rebound, guarding, or rigidity. Skin: warm, dry, intact MSK: No clubbing Neuro: CN grossly intact, no focal neuro deficits Psych: Normal affect - Assessment and Plan (1) New onset atrial fibrillation Current Visit: Yes Status: Acute Assessment and Plan: -New onset Afib RVR -TTE 02/12/18 EF 60-65%, mild LV hypertrophy, mod to severe biatrial enlargement, mild-mod mr, mod-severe tr. -TSH, Mg, K wnl -[id number] 4 -Anticoagulated with apixaban -Rate controlled on diltiazem -Cards following -During walk today O2 mid 80's. -Will do 6 min walk to assess for home O2 needs. -Likely dc tomorrow. Will need home health and home PT at dc. (2) CHF (congestive heart failure) Current Visit: Yes Status: Chronic Assessment and Plan: -Presented with orthopnea, dyspnea on exertion, bilateral lower extremity 2+ pitting edema -TTE 02/12/18 EF 60-65%, mild LV hypertrophy, mod to severe biatrial enlargement, mild-mod mr, mod-severe tr. -Edema improved with diuresis -Cards increased lasix from daily to BID (3) CKD (chronic kidney disease) stage 3, GFR 30-59 ml/min Current Visit: Yes Status: Chronic Assessment and Plan: History of CKD III Avoid nephrotoxins and continue to closely monitor. (4) Alcohol abuse Current Visit: Yes Status: Acute Assessment and Plan: Discussed cessation of alcohol abuse Patient's family reports that she drinks approximately 5-6 alcoholic beverages daily No withdrawal symptoms (5) History of seizures Current Visit: Yes Status: Chronic Assessment and Plan: -History of seizures in the last episode was 2 years ago. (6) GERD (gastroesophageal reflux disease) Current Visit: Yes Status: Chronic Assessment and Plan: Hx of chronic GERD. Continue Prilosec (7) Headache Current Visit: Yes Status: Chronic Assessment and Plan: -Hx of chronic KHAN -Had multiple KHAN's this admission occured with exertion, described as tightness without visual changes, N/V, numbness/paresthesia, neck pain, subjective fever/chills, or other focal neruo deficits to be concerning of TIA/CVA, meningitis, or intracranial pathology. -Has appt as outpatient with neuro already. -CT head 02/16/18 without acute intracranial abnormality. DVT Prophylaxis: Apixaban - Time Spent with Patient Total time spent is greater than 50% in coordination of care (as documented) at patient's floor/unit and/or counseling patient: less than 15 minutes Plan of Care Discussed with: patient Internal Medicine: Result - Labs CBC & Chem 7: 02/17/18 05:31 02/17/18 05:31 Labs: Short CBC 02/17/18 Range/Units 05:31 WBC 6.9 (4.3-11.1) K/mcL Hgb 9.6 L (11.5-15.4) g/dL Hct 30.8 L (35.3-44.9) % Plt Count 146 (140-400) K/mcL BMP 02/17/18 05:31 Sodium 137 Potassium 3.9 Chloride 99 Carbon Dioxide 31 H BUN 11 Creatinine 0.94 Glucose 105 Calcium 8.8 - ABG Interpretation ABG results: PT/INR, D-dimer PT 11.9 Seconds (9.4-12.1) 02/11/18 14:44 D-Dimer 425 ng/mLFEU (0-500) 02/16/18 15:53 Consult Discharge Plan - Plan Referrals: Saúl Ballard MD [Primary Care Provider] - 02/18/18 9:45 am Prescriptions: Apixaban [Eliquis] 5 mg PO BID 30 Days #60 tablet Diltiazem CD (24hr) [Cardizem CD] 180 mg PO DAILY 30 Days #30 cap.er.24h Furosemide [Lasix] 10 mg PO DAILY 30 Days #15 tablet Isosorbide MONOnitrate (24 HR) [Imdur] 30 mg PO DAILY 30 Days #30 tab.er.24h <Julia Oglesby - Last Filed: 02/17/18 17:52> Hospitalist Progress Note - Encounter Date of Encounter: 02/17/18 - Exam Vitals: Temp Pulse Resp BP Pulse Ox 98.5 F 84 17 117/87 98 02/17/18 11:07 02/17/18 15:05 02/17/18 08:00 02/17/18 15:05 02/17/18 15:05 - Assessment and Plan (1) New onset atrial fibrillation Current Visit: Yes Status: Acute (2) GERD (gastroesophageal reflux disease) Current Visit: Yes Status: Chronic (3) History of seizures Current Visit: Yes Status: Chronic (4) CKD (chronic kidney disease) stage 3, GFR 30-59 ml/min Current Visit: Yes Status: Chronic (5) Alcohol abuse Current Visit: Yes Status: Acute (6) CHF (congestive heart failure) Current Visit: Yes Status: Chronic (7) Headache Current Visit: Yes Status: Chronic - Time Spent with Patient Total time spent is greater than 50% in coordination of care (as documented) at patient's floor/unit and/or counseling patient: Internal Medicine: Result - Labs CBC & Chem 7: 02/17/18 05:31 02/17/18 05:31 Labs: Short CBC 02/17/18 Range/Units 05:31 WBC 6.9 (4.3-11.1) K/mcL Hgb 9.6 L (11.5-15.4) g/dL Hct 30.8 L (35.3-44.9) % Plt Count 146 (140-400) K/mcL BMP 02/17/18 05:31 Sodium 137 Potassium 3.9 Chloride 99 Carbon Dioxide 31 H BUN 11 Creatinine 0.94 Glucose 105 Calcium 8.8 - ABG Interpretation ABG results: PT/INR, D-dimer PT 11.9 Seconds (9.4-12.1) 02/11/18 14:44 D-Dimer 425 ng/mLFEU (0-500) 02/16/18 15:53 - Attending Attestation I examined this patient and my medical decision-making was reviewed with the Resident Physician Dr Matias. I agree with the documented findings, disposition and treatment plan as described except to the extent set forth below/addl details below Ms Carrasquillo was admitted with new Afib RVR and diastolic CHF. She was on the obs unit and ready for dc to home when she was noted to have elevated heart rate with ambulation and oxygen sat that dropped to 88%. DC was held and she was transferred to [facility] for further monitoring. Our team has assumed care. She cont to have HR elevation with exertion and develops headache with HR elevation. Cardiology again following awake, overall feeling better, no palpitations, chest pain, sob or presyncope at rest. Elevated HR with lightheadedness walking last evening. cards to see again today for further recs. No khan currently, cont to deny any vision changes, numbness, tingling weakness or other dizziness gen- alert, awake,appears stated age cv- reg rate and irreg/irreg rhythm, normal s1,s2, no murmurs appreciated, no le edema, no jvd lungs- ctabl, no wheezing, rhonchi or crackles, normal resp effort on o2 nc abd- soft, non tender, non distended, + bs neuro- AAOx3, CN grossly intact, no focal deficits, no dysarthria or aphasia New onset Afib with RVR, now rate controlled Afib with exertion of HR elevation into 120s routinely with exertion -cardizem dose uptitrated, on oral AC -checked mag and repleted IV today, oral kcl to keep K >4, tsh wnl, no signs/symptoms of infection at this time (recent UTI, completed abx course, pt ua reviewed, she is denying any symptoms of UTI) -on further chart review cardiology did follow her this admission, given failure to improve cards reconsulted -rec to cont cardizem + eliquis, increase lasix, increase activity -on chart review i do not see mention of need for ischemic work up, no trops that i can find in [facility], EKG showed afib without ischemic changes and echo reviewed, will have her fu with cards Dr Singh on dc as recommended by cards -she also had bl le us which was negative for dvt, given hypoxia, tachycardia dimer checked 02/16 and normal to rule out PE, she is on Eliquis as above -she is not displaying s/s of etoh withdrawal and tachycardia is not likely from this -suspect this may simply be related to deconditioning Acute Diastolic CHF, new dx Echo with EF 60-65%, mild lvh, indeterminant diastolic dysfunction, Moderate to severe tricuspid regurg, mild pulmonary hypertension, dilated right and left atria -cards followed, s/p diuresis, now oral lasix, increase dose, home o2 on dc is set up -no ischemic work up was required/preformed this admission, fu cards outpt as above Chronic Headaches, acute flare, exacerbated by tachycardia- this is not c/w cva/tia at this time, neuro exam is normal, CT head neg for acute findings, may be symptom of tachycardia for her. will cont to monitor, she does have outpt neurology follow up already scheduled for within 2 weeks <Nathanael Matias - Last Filed: 02/17/18 13:23> (2) CHF (congestive heart failure) Qualifiers: Heart failure type: unspecified Heart failure chronicity: acute Qualified Code(s): I50.9 - Heart failure, unspecified (6) GERD (gastroesophageal reflux disease) Qualifiers: Esophagitis presence: esophagitis presence not specified Qualified Code(s): K21.9 - Gastro-esophageal reflux disease without esophagitis (7) Headache Qualifiers: Headache type: tension-type Headache chronicity pattern: unspecified pattern Intractability: not intractable Qualified Code(s): G44.209 - Tension-type headache, unspecified, not intractable <Julia Oglesby - Last Filed: 02/17/18 17:52> (2) GERD (gastroesophageal reflux disease) Qualifiers: Esophagitis presence: esophagitis presence not specified Qualified Code(s): K21.9 - Gastro-esophageal reflux disease without esophagitis (6) CHF (congestive heart failure) Qualifiers: Heart failure type: unspecified Heart failure chronicity: acute Qualified Code(s): I50.9 - Heart failure, unspecified (7) Headache Qualifiers: Headache type: tension-type Headache chronicity pattern: unspecified pattern Intractability: not intractable Qualified Code(s): G44.209 - Tension-type headache, unspecified, not intractable
[2018-02-18 04:14] LABS: Basophils # 0.1 K/mcL (0.0-0.2); Basophils % 0.8 %; Eosinophils # 0.1 K/mcL (0.0-0.6); Eosinophils % 1.6 %; Hematocrit 30.5 % (35.3-44.9); Hemoglobin 9.4 g/dL (11.5-15.4); Immature Granulocytes % 0.3 % (0-4); Lymphocytes # 1.6 K/mcL (0.6-4.6); Lymphocytes % 21.5 %; Mean Corpuscular HGB Conc 30.8 g/dL (31.6-35.5); Mean Corpuscular Hemoglobin 26.5 pg (28.0-33.3); Mean Corpuscular Volume 85.9 fL (83.0-100.0); Mean Platelet Volume 12.5 fL (9.4-12.4); Monocytes # 0.7 K/mcL (0.0-1.3); Monocytes % 9.1 %; Neutrophils # 5.1 K/mcL (1.6-8.9); Platelet Count 142 K/mcL (140-400); Red Blood Count 3.55 M/mcL (3.82-4.97); Red Cell Distribution Width 17.8 % (11.5-14.5); Segmented Neutrophils % 66.7 %
[2018-02-18 04:33] LABS: BUN/Creatinine Ratio 11 (6-26); Blood Urea Nitrogen 10 mg/dL (8-23); Calcium 8.8 mg/dL (8.6-10.3); Carbon Dioxide 32 mEq/L (23-29); Chloride 97 mEq/L (98-107); Glucose 108 mg/dL (70-105); Osmolality,Calculated 284 (280-300); Potassium 3.6 mEq/L (3.5-5.1); Sodium 137 mEq/L (136-145); eGFR For Non-African Americans 58 (> 60)
[2018-02-18] MEDS: Furosemide 20 MG TABLET PO SCH (08:09)
[2018-02-18] MEDS: Diltiazem CD (24hr) 240 MG CAPSULE PO SCH (09:25)
[2018-02-18] MEDS: Thiamine (B-1) 100 MG TABLET PO SCH (09:25)
[2018-02-18] MEDS: Isosorbide MONOnitrate (24 HR) 30 MG TAB.ER.24H PO SCH (09:25)
[2018-02-18] MEDS: Apixaban 5 MG TABLET PO SCH (09:25)
[2018-02-18] MEDS: Folic Acid 1 MG TABLET PO SCH (09:25)
[2018-02-18] MEDS: Vitamin B Complex/Vit C/Vit E 1 EACH TABLET PO SCH (09:25)
[2018-02-18] MEDS: Carbidopa/Levodopa 25/100 TABLET PO SCH ×2 (09:25→15:48)
[2018-02-18] MEDS: Clotrimazole Vag CRM 45 GM TUBE VG SCH (09:26)
--- NOTE | 2018-02-18 09:50 | Discharge Summary ---
<Nathanael Matias - Last Filed: 02/18/18 14:55> - NOTES TO OUTPATIENT PROVIDER Notes to Outpatient Provider: Admitted 02/11/18 with new onset Afib RVR and HFpEF. HF symptoms resolved with diuretics. AFib rate controlled with PO diltiazem and anticoagulated with apixaban. She complained of headaches with exertion and tachycardia throughout admission which appears to be chronic problem of hers. She has previously made appt with neuro for same complaint already. She will followup with Dr Singh (cardiology) in 2 weeks and mi with diltiazem, lasix, imdur, and apixaban along with 2L home O2, home health and home PT. Date of Encounter: 02/18/18 Time of Encounter: 08:25 - Discharge Diagnosis (1) New onset atrial fibrillation Priority: Primary Status: Acute Assessment and Plan: -New onset Afib RVR -TTE 02/12/18 EF 60-65%, mild LV hypertrophy, mod to severe biatrial enlargement, mild-mod mr, mod-severe tr. -TSH, Mg, K wnl -[id number] 4 -Anticoagulated with apixaban -Rate controlled on diltiazem -Cards following -During walk yst O2 mid 80's. -Will do 6 min walk to assess for home O2 needs. -Will need home health and home PT at mi. (2) CHF (congestive heart failure) Priority: Secondary Status: Chronic Assessment and Plan: -Presented with orthopnea, dyspnea on exertion, bilateral lower extremity 2+ pitting edema -TTE 02/12/18 EF 60-65%, mild LV hypertrophy, mod to severe biatrial enlargement, mild-mod mr, mod-severe tr. -Edema improved with diuresis -Cards increased lasix from daily to 20mg BID Qualifiers: Heart failure type: unspecified Heart failure chronicity: acute Qualified Code(s): I50.9 - Heart failure, unspecified (3) CKD (chronic kidney disease) stage 3, GFR 30-59 ml/min Priority: Secondary Status: Chronic Assessment and Plan: History of CKD III Avoid nephrotoxins and continue to closely monitor. (4) Alcohol abuse Priority: Secondary Status: Acute Assessment and Plan: Discussed cessation of alcohol abuse Patient's family reports that she drinks approximately 5-6 alcoholic beverages daily No withdrawal symptoms (5) History of seizures Priority: Secondary Status: Chronic Assessment and Plan: -History of seizures in the last episode was 2 years ago. (6) GERD (gastroesophageal reflux disease) Priority: Secondary Status: Chronic Assessment and Plan: Hx of chronic GERD. Continue Prilosec Qualifiers: Esophagitis presence: esophagitis presence not specified Qualified Code(s): K21.9 - Gastro-esophageal reflux disease without esophagitis (7) Headache Priority: Secondary Status: Chronic Assessment and Plan: -Hx of chronic KHAN -Had multiple KHAN's this admission occured with exertion, described as tightness without visual changes, N/V, numbness/paresthesia, neck pain, subjective fever/chills, or other focal neruo deficits to be concerning of TIA/CVA, meningitis, or intracranial pathology. -Has appt as outpatient with neuro already. -CT head 02/16/18 without acute intracranial abnormality. Qualifiers: Headache type: tension-type Headache chronicity pattern: unspecified pattern Intractability: not intractable Qualified Code(s): G44.209 - Tension-type headache, unspecified, not intractable Hospital course: Ms. Carrasquillo is a 82 year old female presented to the ED complaining of SOB, dyspnea, and heart palpitations for the past 3 weeks. She states that her PCP told her previously that she had pleural effusions. She had right-sided flank pain and was dxd w/kidney infection recently and completed 10 days of abx. F/u CT of the abdomen/pelvis on 02/08/18 showed no evidence of renal or ureter calculus, bilateral perinephric fat stranding that could suggest chronic renal disease w/appropriate clinical hx, and moderate left pleural effusion. Reports orthopnea, continued pain in RUQ, and bilateral pedal edema. Admitted with new onset Afib, TTE 02/12/18 EF 60-65%, mild LV hypertrophy, mod to severe biatrial enlargement, mild-mod mr, mod-severe tr. TSH, Mg, K wnl. [id number] 4, anticoagulated with apixaban, rate controlled on 240mg ER diltiazem. Diuresed with lasix to current 20mg BID with improvement of symptoms. She complained of headaches throughout admission with tachycardia with exertion. CT head 02/16/18 without acute intracranial abnormality. The headaches appear to be a chronic issue and has a current appt scheduled with neuro for same complaint. Going home with diltiazem, lasix, and apixaban. Discharge discussed with: patient - Time Spent with Patient Total time spent providing and/or coordinating discharge services: Less than 30 minutes - Discharge Medications Prescriptions: Apixaban [Eliquis] 5 mg PO BID #60 tablet Apixaban [Eliquis] 5 mg PO BID 30 Days #60 tablet Diltiazem CD (24hr) [Cardizem CD] 240 mg PO DAILY 30 Days #30 cap.er.24h Furosemide [Lasix] 20 mg PO BIDDIURETIC 30 Days #60 tablet Isosorbide MONOnitrate (24 HR) [Imdur] 30 mg PO DAILY #30 tab.er.24h Home Medications: Carbidopa/Levodopa [Carbidopa-Levodopa 25-100 Tab] 1 tab PO TID 02/11/18 [History] Citalopram Hydrobromide [Citalopram HBr] 20 mg PO DAILY 02/11/18 [History] Estrogens, Conjugated [Premarin] 1.25 mg PO DAILY 02/11/18 [History] Omeprazole [PriLOSEC] 40 mg PO DAILY 02/11/18 [History] traZODone [TraZODone] 50 mg PO HS PRN 02/11/18 [History] Apixaban [Eliquis] 5 mg PO BID 30 Days #60 tablet 02/15/18 [Rx] Apixaban [Eliquis] 5 mg PO BID #60 tablet 02/18/18 [Rx] Diltiazem CD (24hr) [Cardizem CD] 240 mg PO DAILY 30 Days #30 cap.er.24h 02/18/18 [Rx] Furosemide [Lasix] 20 mg PO BIDDIURETIC 30 Days #60 tablet 02/18/18 [Rx] Isosorbide MONOnitrate (24 HR) [Imdur] 30 mg PO DAILY #30 tab.er.24h 02/18/18 [Rx] Allergies/Adverse Reactions: Allergy/AdvReac Type Severity Reaction Status Date / Time ciprofloxacin [From Cipro] Allergy See Verified 02/11/18 12:22 Comments codeine Allergy Nausea Verified 02/11/18 12:22 latex Allergy Blister Verified 02/11/18 12:22 pantoprazole [From Protonix] Allergy Itching Verified 02/11/18 12:22 Sulfa (Sulfonamide Allergy Rash Verified 02/11/18 12:22 Antibiotics) Zolpidem [From Ambien] Allergy Hallucinati Verified 02/11/18 12:22 ng tramadol AdvReac Dizziness Verified 02/11/18 20:37 Date of admission: 02/11/18 15:31 Primary care physician: Saúl Ballard MD Consults: 02/11/18 14:42 Consult to Cardiology [CONS] Stat Comment: Consulting Provider: Cardiology Soila Reason for Consult: new onset atrial fib Call Completed: No 02/11/18 15:43 Consult to Medical Records Clerk [CONS] Routine Reason for SW Consult: Please assess patient for possible home needs ([facility]. O2) for post-discharge planning. 02/13/18 10:13 Consult to Physical Therapy [CONS] Routine Comment: Evaluate, develop and implement POC Reason for Consult: discharge planning Does patient have active BEDREST order?: No Is patient medically & hemodynamically stable?: Yes 02/16/18 15:30 Consult to Cardiology [CONS] Routine Comment: Consulting Provider: Hilaria Cm Reason for Consult: seen this admit by cards and signed off, re consult for cont tachy and sxs with exertion in setting of afib despite med changes, appreciate further tx recs Call Completed: Yes Discharging clinician: Nathanael Matias Anticipated date of discharge: 02/18/18 - Constitutional Vitals: Temp Pulse Resp BP Pulse Ox 98.0 F 93 18 114/72 97 02/18/18 06:39 02/18/18 06:39 02/18/18 06:39 02/18/18 06:39 02/18/18 06:39 Exam: General: Alert, no acute distress or signs toxicity HEENT: Atraumatic/normocephalic, EOMI, PERRL, moist mucous embranes Neck: Supple, full ROM, no lymphadenopathy Cardiac: Regular rate, irregularly irregular rhythm, S1/S2+, no murmur, heaves, thrills, appreciated. Radial pulses 2+ bilat, no edema Lungs: Normal resp effort, good air movement, CTAB, no wheezes, rhonchi, rales appreciated. Abdomen: Soft nontender, nondistended, no rebound, guarding, or rigidity. Skin: warm, dry, intact MSK: No clubbing Neuro: CN grossly intact, no focal neuro deficits Psych: Normal affect - Patient Status Disposition: Home, Self-Care Condition: Good Functional capacity at discharge: independent ambulation Overall status at discharge: patient is progressing back to baseline - Discharge Instructions Instructions: Heart Failure (GEN), Heart Healthy Diet (GEN), Seasoning Without Salt (GEN), Low Sodium Diet (GEN) Follow Up With: Saúl Ballard MD [Primary Care Provider] - 02/18/18 9:45 am Simi Singh MD [Non-Partnered Physician] - - Diet and Activity Activity: as per physical therapy, increase activity as tolerated, wear oxygen at all times Diet: other (cardiac) <Julia Oglesby - Last Filed: 02/18/18 17:19> Date of Encounter: 02/18/18 - Discharge Diagnosis (1) New onset atrial fibrillation Status: Acute (2) GERD (gastroesophageal reflux disease) Status: Chronic Qualifiers: Esophagitis presence: esophagitis presence not specified Qualified Code(s): K21.9 - Gastro-esophageal reflux disease without esophagitis (3) History of seizures Status: Chronic (4) CKD (chronic kidney disease) stage 3, GFR 30-59 ml/min Status: Chronic (5) Alcohol abuse Status: Acute (6) CHF (congestive heart failure) Status: Chronic Qualifiers: Heart failure type: unspecified Heart failure chronicity: acute Qualified Code(s): I50.9 - Heart failure, unspecified (7) Headache Status: Chronic Qualifiers: Headache type: tension-type Headache chronicity pattern: unspecified patter n Intractability: not intractable Qualified Code(s): G44.209 - Tension-type headache, unspecified, not intractable Hospital course: Ms. Carrasquillo is a 82 year old female - Time Spent with Patient Total time spent providing and/or coordinating discharge services: Date of admission: 02/11/18 15:31 Primary care physician: Saúl Ballard MD Consults: 02/11/18 14:42 Consult to Cardiology [CONS] Stat Comment: Consulting Provider: Cardiology Soila Reason for Consult: new onset atrial fib Call Completed: No 02/11/18 15:43 Consult to Medical Records Clerk [CONS] Routine Reason for SW Consult: Please assess patient for possible home needs ([facility]. O2) for post-discharge planning. 02/13/18 10:13 Consult to Physical Therapy [CONS] Routine Comment: Evaluate, develop and implement POC Reason for Consult: discharge planning Does patient have active BEDREST order?: No Is patient medically & hemodynamically stable?: Yes 02/16/18 15:30 Consult to Cardiology [CONS] Routine Comment: Consulting Provider: Cardiology Soila Reason for Consult: seen this admit by cards and signed off, re consult for cont tachy and sxs with exertion in setting of afib despite med changes, appreciate further tx recs Call Completed: Yes - Constitutional Vitals: Temp Pulse Resp BP Pulse Ox 98.1 F 86 17 119/93 93 02/18/18 11:45 02/18/18 11:45 02/18/18 11:45 02/18/18 11:45 02/18/18 12:49 - Attending Attestation I examined this patient and my medical decision-making was reviewed with the Resident Physician Dr Matias. I agree with the documented findings, disposition and treatment plan as described except to the extent set forth below/addl details below Ms Carrasquillo was admitted with new Afib RVR and diastolic CHF. She was on the obs unit and ready for dc to home when she was noted to have elevated heart rate with ambulation and oxygen sat that dropped to 88%. DC was held and she was transferred to [facility] for further monitoring. She cont to have HR elevation with exertion and develops headache with HR elevation. Cardiology cont to follow. She was started on po bid lasix and tolerated well. She is now ambulating without tachycardia, presyncope or headache. awake,feeling well. has been ambualting without any difficulty, no presyncope, palpitations, cp or sob on o2 nc 2l. she has not had headache or dizzineess. discussed discharge and answered all questions. eager to dc to home gen- alert, awake,appears stated age cv- reg rate and irreg/irreg rhythm, normal s1,s2, no murmurs appreciated, no le edema lungs- ctabl, no wheezing, rhonchi or crackles, normal resp effort on o2 nc neuro- AAOx3, CN grossly intact, no focal deficit New onset Afib with RVR, now rate controlled Afib -cardizem on oral AC -on further chart review cardiology did follow her this admission, given failure to improve cards reconsulted -rec to cont cardizem + eliquis, increase lasix, increase activity -on chart review i do not see mention of need for ischemic work up, no trops that i can find in [employer], EKG showed afib without ischemic changes and echo reviewed, will have her fu with cards Dr Singh on dc as recommended by cards -she also had bl le us which was negative for dvt, given hypoxia, tachycardia dimer checked 02/16 and normal to rule out PE, she is on Eliquis as above -she is not displaying s/s of etoh withdrawal and tachycardia is not likely from this -suspect tachycardia with exertion may simply be related to deconditioning and has since resolved with increased activity the last two dys -cards outpt appt, rec one week, only able to get Dr Francisco yanezt in 2 weeks, cards to contact pt if sooner, daily weights ([facility] order for daily weights noted on referral) Acute Diastolic CHF, new dx Echo with EF 60-65%, mild lvh, indeterminant diastolic dysfunction, Moderate to severe tricuspid regurg, mild pulmonary hypertension, dilated right and left atria -cards followed, s/p diuresis, now oral lasix, cont current dose on dc as per cards home o2 on dc is set up -no ischemic work up was required/preformed this admission, fu cards outpt as above -cards outpt appt, rec one week, only able to get Dr Singh appt in 2 weeks, cards to contact pt if sooner, daily weights ([facility] order for daily weights noted on referral) Chronic Headaches, acute flare, exacerbated by tachycardia, resolved- this is not c/w cva/tia at this time, neuro exam is normal, CT head neg for acute findings, may be symptom of tachycardia for her. [facility] does have outpt neurology follow up already scheduled for within 2 weeks time spent on discharge 25 min
--- NOTE | 2018-02-18 10:22 | Physician Discharge Referral ---
<Nathanael Matias - Last Filed: 02/18/18 14:57> Home Health/Hosp Referral Info Transfer to: Home Health Attending Provider: Dr Sheffield Provider in Charge Post Discharge: PCP - Diagnosis (1) New onset atrial fibrillation Priority: Primary Status: Acute (2) CHF (congestive heart failure) Priority: Secondary Status: Chronic (3) Headache Priority: Secondary Status: Chronic (4) CKD (chronic kidney disease) stage 3, GFR 30-59 ml/min Priority: Secondary Status: Chronic (5) Alcohol abuse Priority: Secondary Status: Acute (6) History of seizures Priority: Secondary Status: Chronic (7) GERD (gastroesophageal reflux disease) Priority: Secondary Status: Chronic - Respiratory Orders Oxygen / L per min (2) Smoking Cessation: Smoking cessation has been advised. For more information, call the [place] Tobacco Quit Line at 2-982-KQBP-NOW. - Diet/Nutrition Diet/Nutrition Orders: Cardiac - Activity Activity Orders: Ambulate, Walker - Services Needed Following services are medically necessary services: Nursing, Home Health Aide, Physical Therapy - Transfer Medications Prescriptions: Apixaban [Eliquis] 5 mg PO BID #60 tablet Apixaban [Eliquis] 5 mg PO BID 30 Days #60 tablet Diltiazem CD (24hr) [Cardizem CD] 240 mg PO DAILY 30 Days #30 cap.er.24h Furosemide [Lasix] 20 mg PO BIDDIURETIC 30 Days #60 tablet Isosorbide MONOnitrate (24 HR) [Imdur] 30 mg PO DAILY #30 tab.er.24h Home Medications: Carbidopa/Levodopa [Carbidopa-Levodopa 25-100 Tab] 1 tab PO TID 02/11/18 [History] Citalopram Hydrobromide [Citalopram HBr] 20 mg PO DAILY 02/11/18 [History] Estrogens, Conjugated [Premarin] 1.25 mg PO DAILY 02/11/18 [History] Omeprazole [PriLOSEC] 40 mg PO DAILY 02/11/18 [History] traZODone [TraZODone] 50 mg PO HS PRN 02/11/18 [History] Apixaban [Eliquis] 5 mg PO BID 30 Days #60 tablet 02/15/18 [Rx] Apixaban [Eliquis] 5 mg PO BID #60 tablet 02/18/18 [Rx] Diltiazem CD (24hr) [Cardizem CD] 240 mg PO DAILY 30 Days #30 cap.er.24h 02/18/18 [Rx] Furosemide [Lasix] 20 mg PO BIDDIURETIC 30 Days #60 tablet 02/18/18 [Rx] Isosorbide MONOnitrate (24 HR) [Imdur] 30 mg PO DAILY #30 tab.er.24h 02/18/18 [Rx] Allergies/Adverse Reactions: Allergy/AdvReac Type Severity Reaction Status Date / Time ciprofloxacin [From Cipro] Allergy See Verified 02/11/18 12:22 Comments codeine Allergy Nausea Verified 02/11/18 12:22 latex Allergy Blister Verified 02/11/18 12:22 pantoprazole [From Protonix] Allergy Itching Verified 02/11/18 12:22 Sulfa (Sulfonamide Allergy Rash Verified 02/11/18 12:22 Antibiotics) Zolpidem [From Ambien] Allergy Hallucinati Verified 02/11/18 12:22 ng tramadol AdvReac Dizziness Verified 02/11/18 20:37 Certification: Further, I certify that my clinical findings support that this patient is homebound (i.e. absences from home require considerable and taxing effort and are for medical reasons or zoroastrian services or infrequently or short duration when for other reasons) because: Homebound Reason: Patient requires assistance of a person or device to safely leave home, Leaving home requires considerable and taxing effort due to condition, Severity of cardiac or pulmonary status limits activity tolerance Attestation: My signature below is to certify that this patient is under my care and that I, or nurse practitioner, or a physician's microbiology lab assistant working with me, has a [id number] encounter with this patient. <Julia Oglesby - Last Filed: 02/18/18 17:13> Home Health/Hosp Referral Info Provider in Charge Post Discharge: PCP - Diagnosis (1) New onset atrial fibrillation Status: Acute (2) GERD (gastroesophageal reflux disease) Status: Chronic (3) History of seizures Status: Chronic (4) CKD (chronic kidney disease) stage 3, GFR 30-59 ml/min Status: Chronic (5) Alcohol abuse Status: Acute (6) CHF (congestive heart failure) Status: Chronic (7) Headache Status: Chronic - Respiratory Orders Smoking Cessation: Smoking cessation has been advised. For more information, call the [place] Tobacco Quit Line at 4-838-WDQT-NOW. - Services Needed Home Care Orders: daily weight Certification: Further, I certify that my clinical findings support that this patient is homebound (i.e. absences from home require considerable and taxing effort and are for medical reasons or zoroastrian services or infrequently or short duration when for other reasons) because: Attestation: My signature below is to certify that this patient is under my care and that I, or nurse practitioner, or a physician's microbiology lab assistant working with me, has a [id number] encounter with this patient.
[2018-02-18 11:48] VITALS: BP 119/93
--- NOTE | 2018-02-18 13:57 | Cardiology Progress Note ---
<Albaro Wilson - Last Filed: 02/18/18 13:59> Date of Encounter: 02/18/18 Time of Encounter: 13:55 Assessment and Plan (1) New onset atrial fibrillation Current Visit: Yes Status: Acute 82 YO F with new onset afib given cardizem experiencing increasing SOB and palpitations with exertion. Doing well on increased lasix. Cardiology will sign off at this time. Recs: - D/C on current increased lasix regimen - daily weight cechs - follow up with health information specialist in 1 week. Discussion w patient/family: The assessment and plan as outlined above was discussed with the patient and/or family members who expressed understanding and agreement. All questions were answered. Thank you for involving us in the care of your patient. Please call with any questions. Subjective Principal diagnosis: afib Interval history: Patient with new onset Afib on cardizem being consulted for worsening afib symptoms. Patient was given additional lasix yesterday and she reports her symptoms are much better. Had patient walk while monitering O2 and she had SaO2 of 91% with HR 115. Patient would like to go home. Objective Vital Signs, Last 4 Hours Temp Pulse Resp BP Pulse Ox 02/18/18 12:49 93 02/18/18 11:45 98.1 F 86 17 119/93 96 General: Conversant HEENT: Atraumatic, Normocephaly Neck: Other (Mild JVD) Cardiac: Reg Rate and Rhythm, Normal S1 and S2 Lungs: Normal Breath Sounds, No Wheeze, Rales, Rhonchi Neuro: Alert and responsive Abdomen: Soft Skin: No rashes noted on visualized skin Musculoskeletal: No Chest Wall Tenderness Extremities: No Clubbing, No Cyanosis, Normal Pulses, Other (mild edema in LE) Results 02/18/18 03:43 02/18/18 03:43 Lab Results 02/18/18 02/18/18 03:43 03:43 WBC 7.6 Hgb 9.4 L Hct 30.5 L Plt Count 142 Sodium 137 Potassium 3.6 Chloride 97 L Carbon Dioxide 32 H BUN 10 Creatinine 0.93 Glucose 108 H Calcium 8.8 Consult Discharge Plan - Plan Referrals: Saúl Ballard MD [Primary Care Provider] - 02/18/18 9:45 am Simi Singh MD [Non-Partnered Physician] - Prescriptions: Apixaban [Eliquis] 5 mg PO BID #60 tablet Apixaban [Eliquis] 5 mg PO BID 30 Days #60 tablet Diltiazem CD (24hr) [Cardizem CD] 240 mg PO DAILY 30 Days #30 cap.er.24h Furosemide [Lasix] 20 mg PO BIDDIURETIC 30 Days #60 tablet Isosorbide MONOnitrate (24 HR) [Imdur] 30 mg PO DAILY #30 tab.er.24h <Gilberto Mejia A - Last Filed: 02/18/18 16:00> Date of Encounter: 02/18/18 Assessment and Plan Discussion w patient/family: The assessment and plan as outlined above was discussed with the patient and/or family members who expressed understanding and agreement. All questions were answered. Thank you for involving us in the care of your patient. Please call with any questions. Objective Vital Signs, Last 4 Hours Pulse Ox 02/18/18 12:49 93 Results 02/18/18 03:43 02/18/18 03:43 Lab Results 02/18/18 02/18/18 03:43 03:43 WBC 7.6 Hgb 9.4 L Hct 30.5 L Plt Count 142 Sodium 137 Potassium 3.6 Chloride 97 L Carbon Dioxide 32 H BUN 10 Creatinine 0.93 Glucose 108 H Calcium 8.8 - Attending Attestation I have personally performed a face to face evaluation on this patient. I have reviewed and agree with the care plan as documented by the resident. History and Exam by me shows: S: Feels better today A: Afib, rate controlled in the 80s HFpEF, improving exercise tolerance. Off oxygen supplementation P: Continue Lasix 20 milligrams bid c/w cardizem CD 240 and eliquis 5 mg twice a day f/u Cardiology clinic Thanks, Gilberto Mejia MD
[2018-02-18] MEDS: *HR* HYDROcodone/Acet 5/325 mg TABLET PO PRN (15:52)
--- NOTE | 2018-02-18 19:15 | Electrocardiograph Report ---
[place] [id number] Test Date: 2018-02-14 Pat Name: No Carrasquillo Department: [id number] Room: 2N7 Gender: F [employer]orter: : 1935 Requested By: Lisa Long Order Number: [id number] Reading MD: Aubrey Marin Measurements Intervals [place] Rate: 102 P: VT: 0 QRS: 41 QRSD: 76 T: 2 QT: 345 QTc: 404 Interpretive Statements ATRIAL FIBRILLATION WITH RAPID VENTRICULAR RESPONSE LOW QRS VOLTAGE NONSPECIFIC T-WAVE ABNORMALITY Electronically Signed On 02-18-2018 19:13:21 EDT by Aubrey Marin
== END 2018-02-18 16:40 | disposition home or self-care (01) | DRG 291 ==
LOC: EMEROOARM 12:08 → 3BNU 12:08 → SUATTDRO 15:31 → 2NENU 02-15 17:18
PROVIDERS: ADMIT Internal Medicine Nephrology; ATTEND Internal Medicine

== ENCOUNTER 2019-11-03 22:52 | Observation (INO) ==
[2019-11-03] MEDS ORDERED: Isovue-370 500 ML BOTTLE IVP ONE (23:34)
[2019-11-03 23:36] LABS: Basophils % 0.2 %; Eosinophils % 0.1 %; Hematocrit 41.2 % (35.3-44.9); Hemoglobin 13.5 g/dL (11.5-15.4); Immature Granulocytes % 0.5 % (0-4); Lymphocytes # 2.2 K/mcL (0.6-4.6); Lymphocytes % 15.2 %; Mean Corpuscular HGB Conc 32.8 g/dL (31.6-35.5); Mean Corpuscular Hemoglobin 29.3 pg (28.0-33.3); Mean Corpuscular Volume 89.4 fL (83.0-100.0); Mean Platelet Volume 11.9 fL (9.4-12.4); Monocytes # 1.1 K/mcL (0.0-1.3); Monocytes % 7.4 %; Neutrophils # 11.3 K/mcL (1.6-8.9); Platelet Count 166 K/mcL (140-400); Red Blood Count 4.61 M/mcL (3.82-4.97); Red Cell Distribution Width 14.5 % (11.5-14.5); Segmented Neutrophils % 76.6 %; White Blood Count 14.7 K/mcL (4.3-11.1)
[2019-11-03 23:43] LABS: Prothrombin Time 11.8 Seconds (9.4-12.1)
[2019-11-03 23:55] LABS: BUN/Creatinine Ratio 37 (6-26); Blood Urea Nitrogen 38 mg/dL (8-23); Calcium 9.2 mg/dL (8.6-10.3); Carbon Dioxide 30 mEq/L (23-29); Chloride 96 mEq/L (98-107); Glucose 103 mg/dL (70-105); Osmolality,Calculated 291 (280-300); Potassium 3.8 mEq/L (3.5-5.1); Sodium 136 mEq/L (136-145); eGFR For African Americans > 60 (> 60); eGFR For Non-African Americans 51 (> 60)
[2019-11-04] MEDS ORDERED: Isovue-370 500 ML BOTTLE IVP ONE (00:01)
[2019-11-04 00:09] LABS: Alanine Aminotransferase 9 Units/L (7-52); Albumin 3.8 g/dL (3.5-5.7); Albumin/Globulin Ratio 1.2 (1.1-2.2); Alkaline Phosphatase 65 Units/L (34-104); Aspartate Amino Transferase 11 Units/L (13-39); Bilirubin,Direct 0.1 mg/dL (0.0-0.2); Bilirubin,Indirect 0.2 mg/dL (0.0-1.0); Bilirubin,Total 0.3 mg/dL (0.3-1.0); Globulin 3.1 g/dL (2.4-3.5); Lipase 148 Units/L (11-82); Total Protein 6.9 g/dL (6.4-8.9)
[2019-11-04 00:10] LABS: Troponin I < 0.03 ng/mL (< 0.04)
[2019-11-04 00:17] LABS: Bacteria,Urine Few per hpf (None-Few); Bilirubin,Urine Negative (Negative); Blood,Urine Trace (Negative); Clarity,Urine Clear (Clear); Color,Urine Light-Yellow (Yellow); Glucose,Urine (UA) Normal (Normal); Hyaline Casts,Urine Few per lpf (None Seen); Ketones,Urine Negative (Negative); Leukocyte Esterase,Urine Large (Negative); Mucus,Urine Few per lpf (None-Few); Nitrite,Urine Negative (Negative); PH,Urine 6.5 pH Units (5.0-8.0); Protein,Urine Trace mg/dL (Neg-Trace); Specific Gravity,Urine 1.019 (1.010-1.025); Squamous Epithelial Cell,Urine Few per hpf (None-Few); Urobilinogen,Urine Normal (Normal); WBC,Urine 30-50 per hpf (0-3)
[2019-11-04] MEDS ORDERED: cefTRIAXone 1,000 MG in 0.9 % Sodium Chloride Mini Bag 100 ML IVPB ONE (00:43)
[2019-11-04] MEDS: 0.9 % Sodium Chloride 1,000 ML IVC SCH ×2 (00:58→14:37)
[2019-11-04] MEDS ORDERED: Naloxone 0.4 MG/ML INJ IVP PRN (02:33)
[2019-11-04 03:23] LABS: Basophils % 0.2 %; Eosinophils % 0.2 %; Hemoglobin 13.8 g/dL (11.5-15.4); Immature Granulocytes % 0.5 % (0-4); Lymphocytes # 2.6 K/mcL (0.6-4.6); Lymphocytes % 13.6 %; Mean Corpuscular HGB Conc 32.1 g/dL (31.6-35.5); Mean Corpuscular Hemoglobin 28.5 pg (28.0-33.3); Mean Corpuscular Volume 88.8 fL (83.0-100.0); Mean Platelet Volume 11.2 fL (9.4-12.4); Monocytes # 1.3 K/mcL (0.0-1.3); Monocytes % 6.9 %; Neutrophils # 14.9 K/mcL (1.6-8.9); Platelet Count 157 K/mcL (140-400); Red Blood Count 4.84 M/mcL (3.82-4.97); Red Cell Distribution Width 14.5 % (11.5-14.5); Segmented Neutrophils % 78.6 %; White Blood Count 18.9 K/mcL (4.3-11.1)
[2019-11-04] MEDS ORDERED: Nitroglycerin 0.4 MG TAB.SUBL SL PRN (03:28)
[2019-11-04] MEDS ORDERED: traZODone 50 MG TABLET PO PRN (03:28)
[2019-11-04 03:44] LABS: BUN/Creatinine Ratio 38 (6-26); Blood Urea Nitrogen 33 mg/dL (8-23); Calcium 8.7 mg/dL (8.6-10.3); Carbon Dioxide 28 mEq/L (23-29); Chloride 97 mEq/L (98-107); Glucose 109 mg/dL (70-105); Osmolality,Calculated 288 (280-300); Potassium 3.8 mEq/L (3.5-5.1); Sodium 135 mEq/L (136-145); Troponin I < 0.03 ng/mL (< 0.04); eGFR For African Americans > 60 (> 60); eGFR For Non-African Americans > 60 (> 60)
[2019-11-04] MEDS ORDERED: Aspirin 325 MG TABLET PO ONE (03:44)
[2019-11-04] MEDS ORDERED: Regadenoson 0.4 MG/5 ML SYRINGE IVP ONE (06:45)
[2019-11-04] MEDS: Carbidopa/Levodopa 25/100 TABLET PO SCH ×3 (12:27→21:20)
[2019-11-04] MEDS: Isosorbide MONOnitrate (24 HR) 60 MG TAB.ER.24H PO SCH (12:34)
[2019-11-04] MEDS: Loratadine 10 MG TABLET PO SCH (12:34)
[2019-11-04] MEDS: DilTIAZem CD (24hr) 240 MG CAP.ER.24H PO SCH (12:35)
[2019-11-04] MEDS: Furosemide 20 MG TABLET PO SCH (17:50)
[2019-11-05 08:29] LABS: Basophils % 0.2 %; Eosinophils # 0.1 K/mcL (0.0-0.6); Eosinophils % 1.1 %; Hematocrit 39.6 % (35.3-44.9); Hemoglobin 12.8 g/dL (11.5-15.4); Immature Granulocytes % 0.3 % (0-4); Lymphocytes # 1.8 K/mcL (0.6-4.6); Lymphocytes % 16.3 %; Mean Corpuscular HGB Conc 32.3 g/dL (31.6-35.5); Mean Corpuscular Hemoglobin 28.8 pg (28.0-33.3); Mean Corpuscular Volume 89.2 fL (83.0-100.0); Mean Platelet Volume 11.7 fL (9.4-12.4); Monocytes # 1.2 K/mcL (0.0-1.3); Monocytes % 10.5 %; Neutrophils # 7.9 K/mcL (1.6-8.9); Platelet Count 148 K/mcL (140-400); Red Blood Count 4.44 M/mcL (3.82-4.97); Red Cell Distribution Width 14.7 % (11.5-14.5); Segmented Neutrophils % 71.6 %
[2019-11-05 08:40] LABS: BUN/Creatinine Ratio 22 (6-26); Blood Urea Nitrogen 18 mg/dL (8-23); Calcium 8.4 mg/dL (8.6-10.3); Carbon Dioxide 34 mEq/L (23-29); Chloride 101 mEq/L (98-107); Glucose 97 mg/dL (70-105); Osmolality,Calculated 288 (280-300); Sodium 138 mEq/L (136-145); eGFR For African Americans > 60 (> 60); eGFR For Non-African Americans > 60 (> 60)
[2019-11-05] MEDS ORDERED: cefTRIAXone 1,000 MG in Water for inj. (sterile) 10 ML IVP SCH (09:00)
[2019-11-05 09:49] VITALS: BP 145/68
[2019-11-05] MEDS: DilTIAZem CD (24hr) 240 MG CAP.ER.24H PO SCH (09:51)
[2019-11-05] MEDS: Furosemide 20 MG TABLET PO SCH (09:51)
[2019-11-05] MEDS: Carbidopa/Levodopa 25/100 TABLET PO SCH (09:51)
[2019-11-05] MEDS: Isosorbide MONOnitrate (24 HR) 60 MG TAB.ER.24H PO SCH (09:51)
[2019-11-05] MEDS: Loratadine 10 MG TABLET PO SCH (09:56)
== END 2019-11-05 11:00 | disposition home or self-care (01) ==
LOC: 3BNU 22:52 → EMEROOARM 22:52 → 3BNU 11-04 02:24
PROVIDERS: ADMIT Student in an Organized Health Care Education/Training Program; ATTEND Student in an Organized Health Care Education/Training Program